=== PATIENT | male | born 1945 | race Caucasian/White ===

== ENCOUNTER 2016-07-09 02:50 | Emergency (ER) | payer OTHER ==
[~2016-07-09] VITALS: Ht 167.6 cm; Wt 77.0 kg
[~2016-07-09 02:50] MED LIST: ALBU17I INH; AZIT250T3 PO; FISH1000 PO; FOSA70TA PO; HYDR12.56 PO; IPRAAER INH; MUCI600T PO; PRAV10 PO; PRED20 PO; TAB-TAB PO; TAMS0.4C67 PO
[2016-07-09 02:55] VITALS: BP 126/59; PULSE 107; RESP 20; TEMP 98.2; O2SAT 96
[2016-07-09 03:00] VITALS: O2SAT 96
[2016-07-09] MEDS ORDERED: GUAI400T8 PO (03:12)
[2016-07-09] MEDS ORDERED: SYMB80AE INH (03:12)
[2016-07-09] MEDS ORDERED: PRAV20TA2 PO (03:12)
[2016-07-09] MEDS ORDERED: TAMS0.4C4 PO (03:12)
[2016-07-09] MEDS ORDERED: MULTTAB67 PO (03:12)
[2016-07-09] MEDS ORDERED: IPRAAER INH (03:12)
[2016-07-09] MEDS ORDERED: FISH1000 (03:12)
[2016-07-09] MEDS ORDERED: VITA500030 CHEW (03:12)
[2016-07-09] MEDS ORDERED: ALEN1TAB48 PO (03:12)
[2016-07-09] MEDS ORDERED: LISI10TA3 PO (03:12)
[2016-07-09] MEDS: RESP: ALBUTEROL 2.5 MG/IPRATROPIUM 0.5 MG NEB (SCH) INH (03:19)
[2016-07-09 03:36] LABS: BASOPHIL % 0.3 % (0.0-2.0); EOSINOPHIL % 0.2 % (0.0-4.0); HEMATOCRIT 38.1 % (39.0-51.0); HEMO FLAGS DIFF FINAL; LYMPH % 13.5 % (9.0-44.0); LYMPHOCYTE # 1.5 TH/MM3 (1.0-4.8); MEAN CELL VOLUME 97.8 FL (80.0-100.0); MEAN CORPUSCULAR HEMOGLOBIN 32.9 PG (27.0-34.0); MEAN CORPUSCULAR HGB CONC 33.6 % (32.0-36.0); PLATELET COUNT 147 TH/MM3 (150-450); RED BLOOD COUNT 3.89 MIL/MM3 (4.50-5.90); RED CELL DISTRIBUTION WIDTH 12.9 % (11.6-17.2); WHITE BLOOD COUNT 11.4 TH/MM3 (4.0-11.0)
--- NOTE | 2016-07-09 03:41 | RADRPT ---
EXAM DATE/TIME: 07/09/2016 03:06 [facility] COMPARISON: CHEST SINGLE AP, April 20, 2016, 14:30. INDICATIONS : Shortness of breath. MEDICAL HISTORY : Chronic obstructive pulmonary disease. SURGICAL HISTORY : None. ENCOUNTER: Initial ACUITY: 1 day PAIN SCORE: 0/10 LOCATION: Bilateral chest FINDINGS: A single view of the chest demonstrates the lungs to be symmetrically aerated without evidence of mas s, infiltrate or effusion. The cardiomediastinal contours are unremarkable. Osseous structures are intact. CONCLUSION: The lungs are clear. No evidence of pneumothorax. Hank Rivera MD on July 09, 2016 at 3:40 Board Certified Radiologist. This report was verified electronically.
[2016-07-09 03:51] LABS: ALT (GPT) 20 U/L (12-78); ANION GAP 6 MEQ/L (5-15); AST (GOT) 16 U/L (15-37); BICARBONATE 25.7 MEQ/L (21.0-32.0); BLOOD UREA NITROGEN 16 MG/DL (7-18); CHLORIDE 112 MEQ/L (98-107); GLOMERULAR FILTRATION RATE 80 ML/MIN (>89); POTASSIUM 3.3 MEQ/L (3.5-5.1); SODIUM (NA) 144 MEQ/L (136-145)
[2016-07-09 03:55] LABS: ALKALINE PHOSPHATASE 40 U/L (45-117); TOTAL BILIRUBIN ADULT 0.3 MG/DL (0.2-1.0)
--- NOTE | 2016-07-09 04:43 | PD ---
HPI Chief Complaint: Respiratory Distress Time Seen by Provider: 02:59 Travel History International Travel<30 days: No Contact w/Intl Traveler<30days: No Traveled to known affect area: No History of Present Illness HPI This is a 71-year-old male who has a history of COPD who is on 2 L of oxygen in the evenings at home who presents to the emergency department with increasing shortness of breath that started at 9 PM, constant, moderate severity, worse with exertion improved with rest. He denies any change in his sputum production. He denies any fevers or chills. He follows with Dr. gaitan. He says this feels similar to his COPD exacerbations he's had in the past. He denies any chest pain. PFSH Past Medical History Asthma: No Heart Rhythm Problems: No Cancer: No Cardiovascular Problems: Yes High Cholesterol: Yes Chest Pain: No Congestive Heart Failure: No COPD: Yes Diminished Hearing: Yes (B HEARING AIDES) Endocrine: No Genitourinary: Yes (incontinence) Hypertension: Yes Immune Disorder: No Musculoskeletal: No Neurologic: No Psychiatric: No Reproductive: No Respiratory: Yes Sleep Apnea: No Past Surgical History Abdominal Surgery: No Cardiac Surgery: No Ear Surgery: No Endocrine Surgery: No Eye Surgery: Yes (CATARACT) Genitourinary Surgery: No Gynecologic Surgery: No Oral Surgery: No Thoracic Surgery: Yes (pneumothorax) Other Surgery: Yes Social History Alcohol Use: No Tobacco Use: No (quit 3 yrs ago) Substance Use: No Allergies-Medications (Allergen,Severity, Reaction): Coded Allergies: No Known Allergies (Verified , 07/09/16) Reported Meds & Prescriptions Reported Meds & Active Scripts Active Reported Alendronate (Alendronate Sodium) 70 Mg Tab 70 Mg PO Q7D Combivent Respimat Inh (Ipratropium-Albuterol Inh) 20-100 Group Home/Act Aero 1 Puff INH QID Symbicort Inh (Budesonide/Formoterol Fumarate) 80-4.5 Mcg/Act Aero 2 Puff INH Q12HR Combivent Respimat Inh (Ipratropium-Albuterol Inh) 20-100 Group Home/Act Aero 1 Puff INH QID Tamsulosin (Tamsulosin HCl) 0.4 Mg Cap 0.4 Mg PO HS Pravastatin 20 Mg Tab 10 Mg PO DAILY Lisinopril 10 Mg Tab 10 Mg PO DAILY Guaifenesin 400 Mg Tab PO BID Fish Oil ([place]-3 Fatty Acids) 1,000 Mg Cap Vitamin D3 (Cholecalciferol) 5,000 Unit Chew 5,000 Units CHEW DAILY Multiple Vitamin 1 Tab 1 Tab PO DAILY Review of Systems Except as stated in HPI: all other systems reviewed are Neg Physical Exam Narrative GENERAL:Well appearing, no acute distress SKIN: Warm and dry. HEAD: Atraumatic. Normocephalic. EYES: Pupils equal and round. No injection or drainage. ENT: Moist mucous membranes NECK: Trachea midline. CARDIOVASCULAR: Regular rate and rhythm. No murmur appreciated. RESPIRATORY: Accessory muscle use, speaking 3-4 sentences, tachypneic, poor air movement bilaterally. GASTROINTESTINAL: Abdomen soft, non-tender, nondistended. MUSCULOSKELETAL: No obvious deformities. NEUROLOGICAL: Awake and alert. No obvious cranial nerve deficits. Moving all extremities. PSYCHIATRIC: Appropriate mood and affect; insight and judgment normal. Data Data Last Documented VS Vital Signs Date Time Temp Pulse Resp B/P Pulse Ox O2 Delivery O2 Flow Rate FiO2 07/09/16 03:00 96 Nasal Cannula 3.00 07/09/16 02:55 98.2 107 20 126/59 Orders Complete Blood Count With Diff (07/09/16 03:00) D-Dimer (07/09/16 03:00) ^ Insert Iv (07/09/16 03:00) Chest, Single Ap (07/09/16 ) Albuterol-Ipratropium Neb (Duoneb Neb) (07/09/16 03:00) Electrocardiogram (07/09/16 ) Troponin I (07/09/16 03:01) Comprehensive Metabolic Panel (07/09/16 03:01) Ct Pulmonary Angiogram (07/09/16 ) Iohexol 350 Inj (Omnipaque 350 Inj) (07/09/16 04:44) Labs Laboratory Tests Test 07/09/16 03:15 White Blood Count 11.4 TH/MM3 Red Blood Count 3.89 MIL/MM3 Hemoglobin 12.8 GM/DL Hematocrit 38.1 % Mean Corpuscular Volume 97.8 FL Mean Corpuscular Hemoglobin 32.9 PG Mean Corpuscular Hemoglobin 33.6 % Concent Red Cell Distribution Width 12.9 % Platelet Count 147 TH/MM3 Mean Platelet Volume 7.6 FL Neutrophils (%) (Auto) 79.0 % Lymphocytes (%) (Auto) 13.5 % Monocytes (%) (Auto) 7.0 % Eosinophils (%) (Auto) 0.2 % Basophils (%) (Auto) 0.3 % Neutrophils # (Auto) 9.0 TH/MM3 Lymphocytes # (Auto) 1.5 TH/MM3 Monocytes # (Auto) 0.8 TH/MM3 Eosinophils # (Auto) 0.0 TH/MM3 Basophils # (Auto) 0.0 TH/MM3 CBC Comment DIFF FINAL Differential Comment D-Dimer Quantitative (PE/DVT) 1.17 MG/L FEU Sodium Level 144 MEQ/L Potassium Level 3.3 MEQ/L Chloride Level 112 MEQ/L Carbon Dioxide Level 25.7 MEQ/L Anion Gap 6 MEQ/L Blood Urea Nitrogen 16 MG/DL Creatinine 0.94 MG/DL Estimat Glomerular Filtration 80 ML/MIN Rate Random Glucose 137 MG/DL Calcium Level 7.6 MG/DL Total Bilirubin 0.3 MG/DL Aspartate Amino Transf 16 U/L (AST/SGOT) Alanine Aminotransferase 20 U/L (ALT/SGPT) Alkaline Phosphatase 40 U/L Troponin I LESS THAN 0.02 NG/ML Total Protein 5.9 GM/DL Albumin 3.3 GM/DL [facility] Medical Decision Making Medical Screen Exam Complete: Yes Emergency Medical Condition: Yes Interpretation(s) Afebrile, tachycardic, normotensive Mild leukocytosis Mild anemia Mild hypokalemia Troponin is normal CT pulmonary angiogram: 4 x 1.5 cm opacity in the right costophrenic angle nonspecific in appearance Differential Diagnosis COPD exacerbation, pneumonia, pulmonary embolism, pneumothorax Narrative Course This is a 71-year-old male who has a history of COPD who is intermittently on 2 L of oxygen at home who presents to the emergency department with increasing shortness of breath this evening. He was placed on a monitor and an IV was established. He was given serial bronchodilators. He received IV steroids with EMS. Labs were obtained which were reassuring. Chest x-ray demonstrated no pneumothorax. D-dimer was elevated and the patient had more dyspnea than was reflected on his physical exam so a CT pulmonary angiogram was obtained to rule out pulmonary embolism. He did have an incidental finding of small consolidation versus mass. I discussed this with him and he will follow-up with Dr. Gaitan. Patient feels much better and is eager to go home. He'll be discharged on antibiotics and steroids. Diagnosis Primary Impression: COPD exacerbation Patient Instructions: General Instructions Additional Instructions: If you develop severe shortness of breath, chest pain, or difficulty breathing return to the emergency department. Use albuterol every 4 hours for the next 2 days. Then use as needed for wheezing. Complete your course of steroids. Complete your course of antibiotics. Follow up with your primary care physician in 2-3 days if your symptoms have not improved. You have a small 4 x 1 cm area on the right costophrenic angle on CT scan which may be a pneumonia or a mass. You should have a CT scan repeated in one month. Med/Other Pt SpecificInfo: Prescription(s) given Scripts Levofloxacin (Levaquin)500 Mg [id number] Mg PO DAILY 7 Days Ref 0 Prov:Marii Oliver MD 07/09/16 Prednisone 20 Mg Tab40 Mg PO DAILY 4 Days Prov:Marii Oliver MD 07/09/16 Disposition: 01 DISCHARGE HOME Condition: Stable Marii Oliver MD Jul 09, 2016 04:42
[2016-07-09] MEDS ORDERED: IOHEXOL 350 MG/ML 10 ML VIAL (for RAD DIAG) IV ONE (04:44)
--- NOTE | 2016-07-09 04:57 | RADRPT ---
EXAM DATE/TIME: 07/09/2016 04:24 [facility] COMPARISON: CHEST SINGLE AP, April 20, 2016, 14:30. CHEST SINGLE AP, July 09, 2016, 3:06. INDICATIONS : Shortness of breath. IV CONTRAST: 75 cc Omnipaque 350 (iohexol) IV RADIATION DOSE: 22.64 CTDIvol (mGy) MEDICAL HISTORY : Hypertension. Chronic obstructive pulmonary disease. Emphysema. SURGICAL HISTORY : None. ENCOUNTER: Initial ACUITY: 1 day PAIN SCALE: 0/10 LOCATION: chest TECHNIQUE: Volumetric scanning of the chest was performed using a pulmonary embolism protocol MIP images were re constructed. Using automated exposure control and adjustment of the mA and/or kV according to patien t size, radiation dose was kept as low as reasonably achievable to obtain optimal diagnostic quality images. FINDINGS: PULMONARY ARTERIES: No filling defects are seen in the pulmonary arteries through the segmental level. LUNGS: Moderate severity upper lobe emphysema. In the lateral right costophrenic angle, there is an irregul ar margin opacity adjacent to the pleura which measures 3.9 x 1.5 cm. This opacity is devoid of air bronchograms. Cannot differentiate between tumor and a consolidative infiltrate. PLEURAE: There is no pleural thickening or pleural effusion. MEDIASTINUM: There is good visualization of the great vessels of the middle mediastinum. No evidence of mediastin al or hilar adenopathy/mass. MUSCULOSKELETAL: Within normal limits for patient age. MISCELLANEOUS: The visualized upper abdominal organs demonstrate no acute abnormality. CONCLUSION: 1. The study is negative for pulmonary embolism. 2. 3.9 x 1.5 cm opacity in the lateral right costophrenic angle is nonspecific in appearance. This c ould represent either tumor or consolidative infiltrate. Recommend followup exam in one month to osvaldo dietrich for resolution or persistence. Hank Rivera MD on July 09, 2016 at 4:51 Board Certified Radiologist. This report was verified electronically.
[2016-07-09] MEDS ORDERED: LEVA500T PO (05:17)
[2016-07-09] MEDS ORDERED: PRED20 PO (05:17)
--- NOTE | 2016-07-09 17:04 | EKG ---
Date Performed: 07/09/2016 Time Performed: 03:45:00 PTAGE: 71 years EKG: SINUS TACHYCARDIA LOW QRS VOLTAGE IN EXTREMITY LEADS Since previous tracing 04/20/2016, axi s no longer leftward, otherwise no significant change. ABNORMAL RHYTHM ECG PREVIOUS TRACING : 04/20/2016 14.55 DOCTOR: Jono Coker Interpretating Date/Time 07/09/2016 17:03:04
== END 2016-07-09 06:04 | disposition home or self-care (01) ==
LOC: NEPC 02:50
DX: J44.1 Chronic obstructive pulmonary disease with (acute) exacerbation (principal); E78.00 Pure hypercholesterolemia, unspecified; I10 Essential (primary) hypertension; R00.0 Tachycardia, unspecified; I49.8 Other specified cardiac arrhythmias
CPT/HCPCS: 71010; 71275; 80053; 84484; 85025; 85379; 93005; 94640; 94664; 99284; Q9967

== ENCOUNTER 2016-11-05 07:32 | Emergency (ER) | payer OTHER ==
[~2016-11-05] VITALS: Ht 162.6 cm; Wt 73.7 kg
[~2016-11-05 07:32] MED LIST changes: -ALBU17I INH; +ALEN1TAB48 PO; -AZIT250T3 PO; +FISH1000; -FISH1000 PO; -FOSA70TA PO; +GUAI400T8 PO; -HYDR12.56 PO; +LEVA500T PO; +LISI10TA3 PO; -MUCI600T PO; +MULTTAB67 PO; -PRAV10 PO; +PRAV20TA2 PO; +SYMB80AE INH; -TAB-TAB PO; +TAMS0.4C4 PO; -TAMS0.4C67 PO; +VITA500030 CHEW
[2016-11-05 07:45] VITALS: BP 149/55; PULSE 94; RESP 16; TEMP 98.1; O2SAT 98
[2016-11-05 07:48] VITALS: BP 149/55; PULSE 94; RESP 16; TEMP 98.1; O2SAT 98
[2016-11-05 07:53] VITALS: BP 149/55; PULSE 94; RESP 16; TEMP 98.1; O2SAT 98
[2016-11-05] MEDS: RESP: ALBUTEROL 2.5 MG/IPRATROPIUM 0.5 MG NEB (SCH) INH ×2 (07:55→07:56)
[2016-11-05] MEDS ORDERED: SODIUM CHLORIDE 0.9% FLUSH 10 ML FLUSH IVF PRN (08:00)
[2016-11-05] MEDS ORDERED: methylPREDNISolone SOD SUCC 125 MG/2 ML VIAL IVP ONE (08:00)
--- NOTE | 2016-11-05 08:01 | PD ---
HPI . Shortness of breath Chief Complaint: Respiratory Symptoms Time Seen by Provider: 07:46 Travel History International Travel<30 days: No Contact w/Intl Traveler<30days: No Traveled to known affect area: No History of Present Illness HPI This patient presents with the acute onset of increasing shortness of breath. He has a history of COPD and uses oxygen at night. He states that he was in his usual state of health yesterday. He awakened this morning with increased shortness of breath. He states that he used his Combivent and nebulizer and did have some improvement in his symptoms. EMS was called and he was brought to the hospital. He was given a nebulizer in route. He reports that his symptoms continue to improve. He has not been running a fever. He has not had any change in his sputum production. He has not had any chest pain. Patient is unsure as to what incited this episode of increased dyspnea. Symptoms were moderate but are improving. PFSH Past Medical History Asthma: No Heart Rhythm Problems: No Cancer: No Cardiovascular Problems: Yes High Cholesterol: Yes Chest Pain: Yes Congestive Heart Failure: No COPD: Yes Diminished Hearing: Yes (B HEARING AIDES) Endocrine: No GERD: Yes Genitourinary: Yes (incontinence) Hypertension: Yes Immune Disorder: No Musculoskeletal: No Neurologic: No Psychiatric: No Reproductive: No Respiratory: Yes Sleep Apnea: No Tetanus Vaccination: Unknown Past Surgical History Abdominal Surgery: No Cardiac Surgery: No Ear Surgery: No Endocrine Surgery: No Eye Surgery: Yes (CATARACT) Genitourinary Surgery: No Gynecologic Surgery: No Oral Surgery: No Thoracic Surgery: Yes (pneumothorax) Other Surgery: Yes Social History Alcohol Use: No Tobacco Use: No (quit 3 yrs ago) Substance Use: No Allergies-Medications (Allergen,Severity, Reaction): Coded Allergies: No Known Allergies (Verified , 11/05/16) Reported Meds & Prescriptions Reported Meds & Active Scripts Active Prednisone 20 Mg Tab 40 Mg PO DAILY 4 Days Reported Albuterol Neb (Albuterol Sulfate) 2.5 Mg/3 Ml Neb 2.5 Mg NEB TID NEB PRN Omeprazole 20 Mg Tab 20 Mg PO DAILY Vitamin D3 (Cholecalciferol) 5,000 Unit Cap 5,000 Units PO DAILY Alendronate (Alendronate Sodium) 70 Mg Tab 70 Mg PO Q7D Combivent Respimat Inh (Ipratropium-Albuterol Inh) 20-100 Senior Living/Act Aero 1 Puff INH QID Symbicort Inh (Budesonide/Formoterol Fumarate) 80-4.5 Mcg/Act Aero 2 Puff INH Q12HR Combivent Respimat Inh (Ipratropium-Albuterol Inh) 20-100 Senior Living/Act Aero 1 Puff INH QID Tamsulosin (Tamsulosin HCl) 0.4 Mg Cap 2 Cap PO HS Pravastatin 20 Mg Tab 10 Mg PO DAILY Lisinopril 10 Mg Tab 10 Mg PO DAILY Guaifenesin 400 Mg Tab 2 Cap PO BID Fish Oil ([place]-3 Fatty Acids) 1,000 Mg Cap Multiple Vitamin 1 Tab 1 Tab PO DAILY Review of Systems Except as stated in HPI: all other systems reviewed are Neg General / Constitutional: No: Fever, Chills Cardiovascular: No: Chest Pain or Discomfort Respiratory: Positive: Shortness of Breath Gastrointestinal: No: Nausea, Vomiting, Diarrhea Physical Exam Narrative GENERAL: Patient is currently receiving a nebulizer treatment. He is able to speak in complete sentences without difficulty. SKIN: Warm and dry. HEAD: Atraumatic. Normocephalic. EYES: Pupils equal and round. Extraocular movements are intact. ENT: No nasal bleeding or discharge. Mucous membranes pink and moist. NECK: Trachea midline. Neck is supple. CARDIOVASCULAR: Regular rate and rhythm. Heart sounds are normal. RESPIRATORY: No accessory muscle use. Diminished breath sounds throughout. GASTROINTESTINAL: Abdomen soft, non-tender, nondistended. MUSCULOSKELETAL: No obvious deformities. No edema. NEUROLOGICAL: Awake and alert. No obvious cranial nerve deficits. Motor grossly within normal limits. Normal speech. PSYCHIATRIC: Appropriate mood and affect; insight and judgment normal. Data Data Last Documented VS Vital Signs Date Time Temp Pulse Resp B/P Pulse Ox O2 Delivery O2 Flow Rate FiO2 11/05/16 07:53 98.1 94 16 149/55 98 Nasal Cannula 2 Orders Complete Blood Count With Diff (11/05/16 07:47) Basic Metabolic Panel (Bmp) (11/05/16 07:47) Iv Access Insert/Monitor (11/05/16 07:47) Ecg Monitoring (11/05/16 07:47) Oximetry (11/05/16 07:47) Oxygen Administration (11/05/16 07:47) Chest, Single Ap (11/05/16 07:47) Sodium Chloride 0.9% Flush (Ns Flush) (11/05/16 08:00) Methylprednisolone So Succ Inj (Solumedr (11/05/16 08:00) Albuterol-Ipratropium Neb (Duoneb Neb) (11/05/16 08:00) Ondansetron Inj (Zofran Inj) (11/05/16 08:45) Labs Laboratory Tests Test 11/05/16 08:00 White Blood Count 6.2 TH/MM3 Red Blood Count 4.02 MIL/MM3 Hemoglobin 13.2 GM/DL Hematocrit 39.2 % Mean Corpuscular Volume 97.5 FL Mean Corpuscular Hemoglobin 32.8 PG Mean Corpuscular Hemoglobin 33.7 % Concent Red Cell Distribution Width 13.2 % Platelet Count 151 TH/MM3 Mean Platelet Volume 7.7 FL Neutrophils (%) (Auto) 55.6 % Lymphocytes (%) (Auto) 35.3 % Monocytes (%) (Auto) 7.4 % Eosinophils (%) (Auto) 1.2 % Basophils (%) (Auto) 0.5 % Neutrophils # (Auto) 3.5 TH/MM3 Lymphocytes # (Auto) 2.2 TH/MM3 Monocytes # (Auto) 0.5 TH/MM3 Eosinophils # (Auto) 0.1 TH/MM3 Basophils # (Auto) 0.0 TH/MM3 CBC Comment DIFF FINAL Differential Comment Sodium Level 143 MEQ/L Potassium Level 3.9 MEQ/L Chloride Level 109 MEQ/L Carbon Dioxide Level 28.8 MEQ/L Anion Gap 5 MEQ/L Blood Urea Nitrogen 17 MG/DL Creatinine 0.98 MG/DL Estimat Glomerular Filtration 76 ML/MIN Rate Random Glucose 136 MG/DL Calcium Level 8.7 MG/DL [facility] Medical Decision Making Medical Screen Exam Complete: Yes Emergency Medical Condition: Yes Medical Record Reviewed: Yes (patient was last seen in June with a COPD exacerbation. He was successfully treated with steroids and DuoNeb nebs. He was subsequently discharged home.) Differential Diagnosis Differential diagnosis of dyspnea includes but is not limited to congestive heart failure, pneumonia, wheezing, pneumothorax, pulmonary embolism Narrative Course Patient presents with increased dyspnea. He has a history of COPD. He feels that this is probably a COPD exacerbation. He is being treated with steroids and stacked nebs. Chest x-ray will be obtained rule out pneumothorax or pneumonia. Last Impressions Chest X-Ray 11/05/16 0731 Signed Impressions: Service Date/Time: Saturday, November 05, 2016 07:53 - CONCLUSION: Normal examination. Anirudh Goldberg MD The chest x-ray was independently viewed by me. CBC & BMP Diagram 11/05/16 08:00 Patient reports that his breathing is improved. His sats are now 98-99% on 2 L. He is now complaining with some nausea. I will give him some Zofran. Diagnosis Primary Impression: COPD exacerbation Additional Impression: Nausea Patient Instructions: COPD (Chronic Obstructive Pulmonary Disease) (DC), General Instructions Med/Other Pt SpecificInfo: Prescription(s) given Scripts Prednisone (21) 10 mg tab Dose Pack 10 Mg Pack10 Mg PO DIRECTED #1 DSPK Ref 0 Prov:Fatimah Yi MD 11/05/16 Disposition: 01 DISCHARGE HOME Condition: Stable Fatimah Yi MD Nov 05, 2016 08:01
[2016-11-05] MEDS ORDERED: ALBU0.08 NEB (08:06)
[2016-11-05] MEDS ORDERED: CHOL5000 PO (08:06)
[2016-11-05] MEDS ORDERED: OMEP20TA PO (08:06)
[2016-11-05 08:25] LABS: BICARBONATE 28.8 MEQ/L (21.0-32.0); POTASSIUM 3.9 MEQ/L (3.5-5.1)
--- NOTE | 2016-11-05 08:29 | RADRPT ---
EXAM DATE/TIME: 11/05/2016 07:53 [facility] COMPARISON: CHEST SINGLE AP, July 09, 2016, 3:06. INDICATIONS : Short of Breath MEDICAL HISTORY : Emphysema. Chronic obstructive pulmonary disease. Hypertension. SURGICAL HISTORY : None. ENCOUNTER: Initial ACUITY: 1 day PAIN SCORE: 0/10 LOCATION: Bilateral chest FINDINGS: A single view of the chest demonstrates the lungs to be symmetrically aerated without evidence of mas s, infiltrate or effusion. The cardiomediastinal contours are unremarkable. Osseous structures are intact. CONCLUSION: Normal examination. Anirudh Goldberg MD on November 05, 2016 at 8:27 Board Certified Radiologist. This report was verified electronically.
[2016-11-05 08:34] LABS: AUTOMATED NEUTROPHIL # 3.5 TH/MM3 (1.8-7.7); BASOPHIL % 0.5 % (0.0-2.0); EOSINOPHIL # 0.1 TH/MM3 (0-0.4); EOSINOPHIL % 1.2 % (0.0-4.0); HEMATOCRIT 39.2 % (39.0-51.0); HEMO FLAGS DIFF FINAL; LYMPH % 35.3 % (9.0-44.0); LYMPHOCYTE # 2.2 TH/MM3 (1.0-4.8); MEAN CELL VOLUME 97.5 FL (80.0-100.0); MEAN CORPUSCULAR HEMOGLOBIN 32.8 PG (27.0-34.0); MEAN CORPUSCULAR HGB CONC 33.7 % (32.0-36.0); MONO % 7.4 % (0.0-8.0); NEUT % 55.6 % (16.0-70.0); PLATELET COUNT 151 TH/MM3 (150-450); RED BLOOD COUNT 4.02 MIL/MM3 (4.50-5.90); RED CELL DISTRIBUTION WIDTH 13.2 % (11.6-17.2); WHITE BLOOD COUNT 6.2 TH/MM3 (4.0-11.0)
[2016-11-05] MEDS ORDERED: ONDANSETRON HCL 4 MG/2 ML VIAL IV PUSH ONE (08:45)
[2016-11-05] MEDS ORDERED: PRED10PA PO (09:04)
[2016-11-05 09:53] VITALS: BP 135/63
== END 2016-11-05 09:54 | disposition home or self-care (01) ==
LOC: NEPC 07:32
DX: J44.1 Chronic obstructive pulmonary disease with (acute) exacerbation (principal); R11.0 Nausea; I10 Essential (primary) hypertension; K21.9 Gastro-esophageal reflux disease without esophagitis; E78.00 Pure hypercholesterolemia, unspecified; Z87.891 Personal history of nicotine dependence
CPT/HCPCS: 71010; 80048; 85025; 94640; 94664; 96374; 99284; J2405

== ENCOUNTER 2016-12-23 19:54 | Emergency (ER) | payer OTHER ==
[~2016-12-23] VITALS: Ht 160 cm; Wt 75.0 kg
[~2016-12-23 19:54] MED LIST changes: +ALBU0.08 NEB; +CHOL5000 PO; -LEVA500T PO; +OMEP20TA PO; +PRED10PA PO; -VITA500030 CHEW
[2016-12-23 20:00] VITALS: BP 150/74; PULSE 102; RESP 20; TEMP 98.5; O2SAT 96
[2016-12-23 21:20] VITALS: BP 117/68; PULSE 90; RESP 20; O2SAT 97
--- NOTE | 2016-12-23 21:27 | PD ---
HPI Chief Complaint: Respiratory Distress Time Seen by Provider: 21:12 Travel History International Travel<30 days: No Contact w/Intl Traveler<30days: No Traveled to known affect area: No History of Present Illness HPI 71-year-old male complaining of shortness of breath. Patient has history of COPD. Patient states that he has persistent productive cough for the past few days. Patient denies any fever chills. Patient denies any chest pain. Patient has been using nebulizer treatment at home. Patient Is Taking Prednisone 20 Mg Twice a Day. Patient Denies Any Abdominal Pain, Nausea Vomiting Diarrhea. PFSH Past Medical History Asthma: No Heart Rhythm Problems: No Cancer: No Cardiovascular Problems: Yes High Cholesterol: Yes Chest Pain: Yes Congestive Heart Failure: No COPD: Yes Diminished Hearing: Yes (B HEARING AIDES) Endocrine: No GERD: Yes Genitourinary: Yes (incontinence) Hypertension: Yes Immune Disorder: No Musculoskeletal: No Neurologic: No Psychiatric: No Reproductive: No Respiratory: Yes Sleep Apnea: No Tetanus Vaccination: < 5 Years Influenza Vaccination: Yes Past Surgical History Abdominal Surgery: No Cardiac Surgery: No Ear Surgery: No Endocrine Surgery: No Eye Surgery: Yes (CATARACT) Genitourinary Surgery: No Gynecologic Surgery: No Oral Surgery: No Thoracic Surgery: Yes (pneumothorax) Other Surgery: Yes Social History Alcohol Use: Yes (wine weekly) Tobacco Use: No (quit 3 yrs ago) Substance Use: No Allergies-Medications (Allergen,Severity, Reaction): Coded Allergies: No Known Allergies (Verified , 11/05/16) Reported Meds & Prescriptions Reported Meds & Active Scripts Active Prednisone (21) 10 mg tab Dose Pack (Prednisone) 10 Mg Pack 10 Mg PO DIRECTED Prednisone 20 Mg Tab 40 Mg PO DAILY 4 Days Reported Albuterol Neb (Albuterol Sulfate) 2.5 Mg/3 Ml Neb 2.5 Mg NEB TID NEB PRN Omeprazole 20 Mg Tab 20 Mg PO DAILY Vitamin D3 (Cholecalciferol) 5,000 Unit Cap 5,000 Units PO DAILY Alendronate (Alendronate Sodium) 70 Mg Tab 70 Mg PO Q7D Combivent Respimat Inh (Ipratropium-Albuterol Inh) 20-100 Halfway/Act Aero 1 Puff INH QID Symbicort Inh (Budesonide/Formoterol Fumarate) 80-4.5 Mcg/Act Aero 2 Puff INH Q12HR Combivent Respimat Inh (Ipratropium-Albuterol Inh) 20-100 Halfway/Act Aero 1 Puff INH QID Tamsulosin (Tamsulosin HCl) 0.4 Mg Cap 2 Cap PO HS Pravastatin 20 Mg Tab 10 Mg PO DAILY Lisinopril 10 Mg Tab 10 Mg PO DAILY Guaifenesin 400 Mg Tab 2 Cap PO BID Fish Oil ([place]-3 Fatty Acids) 1,000 Mg Cap Multiple Vitamin 1 Tab 1 Tab PO DAILY Review of Systems General / Constitutional: No: Fever Eyes: No: Visual changes HENT: No: Headaches Cardiovascular: No: Chest Pain or Discomfort Respiratory: Positive: Shortness of Breath Gastrointestinal: No: Abdominal Pain Genitourinary: No: Dysuria Musculoskeletal: No: Pain Skin: No Rash Neurologic: No: Weakness Psychiatric: No: Depression Endocrine: No: Polydipsia Hematologic/Lymphatic: No: Easy Bruising Physical Exam Narrative GENERAL: Well-nourished, well-developed patient. SKIN: Focused skin assessment warm/dry. HEAD: Normocephalic. EYES: No scleral icterus. No injection or drainage. NECK: Supple, trachea midline. No JVD or lymphadenopathy. CARDIOVASCULAR: Regular rate and rhythm without murmurs, gallops, or rubs. RESPIRATORY: Patient has decreased breath sounds bilaterally. Mild expiratory wheezes bilaterally. Few rhonchi at the bases. GASTROINTESTINAL: Abdomen soft, non-tender, nondistended. MUSCULOSKELETAL: No cyanosis, or edema. BACK: Nontender without obvious deformity. No CVA tenderness. Neurologic exam normal. Data Data Last Documented VS Vital Signs Date Time Temp Pulse Resp B/P (MAP) Pulse Ox O2 Delivery O2 Flow Rate FiO2 12/23/16 20:00 98.5 102 20 150/74 (99) 96 Nasal Cannula 1.00 Orders Orders Complete Blood Count With Diff (12/23/16 21:22) Basic Metabolic Panel (Bmp) (12/23/16 21:22) B-Type Natriuretic Peptide (12/23/16 21:22) Iv Access Insert/Monitor (12/23/16 21:22) Electrocardiogram (12/23/16 21:22) Ecg Monitoring (12/23/16 21:22) Oximetry (12/23/16 21:22) Chest, Single Ap (12/23/16 21:22) Sodium Chloride 0.9% Flush (Ns Flush) (12/23/16 21:30) Methylprednisolone So Succ Inj (Solumedr (12/23/16 21:30) Albuterol-Ipratropium Neb (Duoneb Neb) (12/23/16 21:30) Labs Laboratory Tests Test 12/23/16 21:35 White Blood Count 9.2 TH/MM3 Red Blood Count 4.24 MIL/MM3 Hemoglobin 13.9 GM/DL Hematocrit 42.0 % Mean Corpuscular Volume 98.9 FL Mean Corpuscular Hemoglobin 32.8 PG Mean Corpuscular Hemoglobin Concent 33.2 % Red Cell Distribution Width 13.5 % Platelet Count 216 TH/MM3 Mean Platelet Volume 7.8 FL Neutrophils (%) (Auto) 73.7 % Lymphocytes (%) (Auto) 18.5 % Monocytes (%) (Auto) 7.2 % Eosinophils (%) (Auto) 0.2 % Basophils (%) (Auto) 0.4 % Neutrophils # (Auto) 6.8 TH/MM3 Lymphocytes # (Auto) 1.7 TH/MM3 Monocytes # (Auto) 0.7 TH/MM3 Eosinophils # (Auto) 0.0 TH/MM3 Basophils # (Auto) 0.0 TH/MM3 CBC Comment DIFF FINAL Differential Comment Blood Urea Nitrogen 14 MG/DL Creatinine 1.22 MG/DL Random Glucose 96 MG/DL Calcium Level 10.1 MG/DL Sodium Level 140 MEQ/L Potassium Level 4.7 MEQ/L Chloride Level 101 MEQ/L Carbon Dioxide Level 30.5 MEQ/L Anion Gap 9 MEQ/L Estimat Glomerular Filtration Rate 59 ML/MIN [facility] Medical Decision Making Medical Screen Exam Complete: Yes Emergency Medical Condition: Yes Interpretation(s) 22:28 PM. Chest x-ray shows no acute cardiopulmonary disease. CBC within normal limit. BMP within normal limit. Differential Diagnosis Differential diagnosis including acute exacerbation COPD, bronchitis, pneumonia , PE, pneumothorax, CA. Narrative Course 71-year-old male with shortness of breath. History of COPD. Albuterol with Atrovent unit dose treatment 2. Solu-Medrol 125 mg IV. Diagnosis Primary Impression: COPD with acute exacerbation Patient Instructions: General Instructions Additional Instructions: Continue with albuterol nebulizer treatment as directed. Z-Genaro and prednisone as directed. Follow-up with personal physician. Return if worse. Med/Other Pt SpecificInfo: Prescription(s) given Scripts Prednisone (Prednisone) 20 Mg Tab 20 MG PO BID, #10 TAB 0 Refills Prov: Tj Nuñez MD 12/23/16 Azithromycin (Zithromax Z-Genaro) 250 Mg Dspk 250 MG PO DIRECTED for Infection, #1 DSPK 0 Refills 500 MG (2 tabs) day 1, then 1 tab days 2-5. Prov: Tj Nuñez MD 12/23/16 Disposition: 01 DISCHARGE HOME Condition: Stable Tj Nuñez MD Dec 23, 2016 21:27
[2016-12-23] MEDS ORDERED: SODIUM CHLORIDE 0.9% FLUSH 10 ML FLUSH IVF PRN (21:30)
[2016-12-23] MEDS ORDERED: methylPREDNISolone SOD SUCC 125 MG/2 ML VIAL IVP ONE (21:30)
[2016-12-23] MEDS: RESP: ALBUTEROL 2.5 MG/IPRATROPIUM 0.5 MG NEB (SCH) INH (21:41)
--- NOTE | 2016-12-23 21:55 | RADRPT ---
EXAM DATE/TIME: 12/23/2016 21:37 [facility] COMPARISON: CHEST SINGLE AP, November 05, 2016, 7:53. INDICATIONS : Short of breath. MEDICAL HISTORY : Chronic obstructive pulmonary disease. SURGICAL HISTORY : None. ENCOUNTER: Initial ACUITY: 4 - 6 days PAIN SCORE: 0/10 LOCATION: Bilateral chest FINDINGS: A single view of the chest demonstrates the lungs to be symmetrically aerated without evidence of mas s, infiltrate or effusion. The cardiomediastinal contours are unremarkable. Osseous structures are intact. CONCLUSION: No evidence of acute cardiopulmonary disease. Shad Grissom MD on December 23, 2016 at 21:53 Board Certified Radiologist. This report was verified electronically.
[2016-12-23 22:07] LABS: AUTOMATED NEUTROPHIL # 6.8 TH/MM3 (1.8-7.7); BASOPHIL % 0.4 % (0.0-2.0); EOSINOPHIL % 0.2 % (0.0-4.0); HEMO FLAGS DIFF FINAL; LYMPH % 18.5 % (9.0-44.0); LYMPHOCYTE # 1.7 TH/MM3 (1.0-4.8); MEAN CELL VOLUME 98.9 FL (80.0-100.0); MEAN CORPUSCULAR HEMOGLOBIN 32.8 PG (27.0-34.0); MEAN CORPUSCULAR HGB CONC 33.2 % (32.0-36.0); MONO % 7.2 % (0.0-8.0); NEUT % 73.7 % (16.0-70.0); PLATELET COUNT 216 TH/MM3 (150-450); RED BLOOD COUNT 4.24 MIL/MM3 (4.50-5.90); RED CELL DISTRIBUTION WIDTH 13.5 % (11.6-17.2); WHITE BLOOD COUNT 9.2 TH/MM3 (4.0-11.0)
[2016-12-23 22:21] LABS: BICARBONATE 30.5 MEQ/L (21.0-32.0); POTASSIUM 4.7 MEQ/L (3.5-5.1)
[2016-12-23] MEDS ORDERED: AZITHROMYCIN 250 MG TAB PO ONE (22:30)
[2016-12-23] MEDS ORDERED: ZITHTAB PO (22:32)
[2016-12-23] MEDS ORDERED: PRED20 PO (22:32)
--- NOTE | 2016-12-24 18:22 | EKG ---
Date Performed: 12/23/2016 Time Performed: 22:36:09 PTAGE: 71 years EKG: Sinus rhythm NORMAL ECG NO PREVIOUS TRACING DOCTOR: Milady Heaton Interpretating Date/Time 12/24/2016 18:21:34
== END 2016-12-23 22:56 | disposition home or self-care (01) ==
LOC: NEPC 19:54
DX: J44.1 Chronic obstructive pulmonary disease with (acute) exacerbation (principal); E78.00 Pure hypercholesterolemia, unspecified; K21.9 Gastro-esophageal reflux disease without esophagitis; I10 Essential (primary) hypertension; Z79.51 Long term (current) use of inhaled steroids; Z79.899 Other long term (current) drug therapy
CPT/HCPCS: 71010; 80048; 83880; 85025; 93005; 94640; 94664; 96374; 99284; J2930

== ENCOUNTER 2017-05-26 21:59 | Observation (INO) | payer OTHER ==
[~2017-05-26] VITALS: Ht 167.6 cm; Wt 70.0 kg
[~2017-05-26 21:59] MED LIST changes: +GUAI400T32 PO; -GUAI400T8 PO; -OMEP20TA PO; +OMEP20TA93 PO; +ZITHTAB PO
[2017-05-26] MEDS: RESP: ALBUTEROL 2.5 MG/IPRATROPIUM 0.5 MG NEB (SCH) INH (22:13)
[2017-05-26] MEDS ORDERED: methylPREDNISolone SOD SUCC 125 MG/2 ML VIAL IV PUSH ONE (22:15)
[2017-05-26] MEDS ORDERED: SODIUM CHLOR 0.9% 1000 ML INJ 1,000 ML IV ONE (22:15)
[2017-05-26] MEDS ORDERED: SODIUM CHLORIDE 0.9% FLUSH 10 ML FLUSH IVF PRN (22:15)
[2017-05-26 22:17] VITALS: BP 144/83; PULSE 96; RESP 27; TEMP 98.4; O2SAT 98
[2017-05-26 22:19] VITALS: RESP 27; O2SAT 98
[2017-05-26 22:28] LABS: AUTOMATED NEUTROPHIL # 6.4 TH/MM3 (1.8-7.7); BASOPHIL % 0.2 % (0.0-2.0); HEMATOCRIT 40.3 % (39.0-51.0); HEMOGLOBIN 13.7 GM/DL (13.0-17.0); LYMPH % 22.2 % (9.0-44.0); MEAN CELL VOLUME 96.6 FL (80.0-100.0); MEAN CORPUSCULAR HEMOGLOBIN 32.9 PG (27.0-34.0); MEAN PLATELET VOLUME 7.1 FL (7.0-11.0); MONO % 6.4 % (0.0-8.0); MONOCYTE # 0.6 TH/MM3 (0-0.9); NEUT % 71.2 % (16.0-70.0); PLATELET COUNT 171 TH/MM3 (150-450); RED BLOOD COUNT 4.17 MIL/MM3 (4.50-5.90); RED CELL DISTRIBUTION WIDTH 12.8 % (11.6-17.2); WHITE BLOOD COUNT 8.9 TH/MM3 (4.0-11.0)
--- NOTE | 2017-05-26 22:52 | RADRPT ---
EXAM DATE/TIME: 05/26/2017 22:30 [facility] COMPARISON: No previous studies available for comparison. INDICATIONS : Shortness of breath. MEDICAL HISTORY : Chronic obstructive pulmonary disease. SURGICAL HISTORY : None. ENCOUNTER: Initial ACUITY: 3 days PAIN SCORE: 0/10 LOCATION: Bilateral chest FINDINGS: A single view of the chest demonstrates the lungs to be symmetrically aerated without evidence of mas s, infiltrate or effusion. The cardiomediastinal contours are unremarkable. Osseous structures are intact. CONCLUSION: No acute disease. Aaron Simpson MD on May 26, 2017 at 22:46 Board Certified Radiologist. This report was verified electronically.
[2017-05-26 23:05] LABS: BICARBONATE 27.5 MEQ/L (21.0-32.0); CALCIUM 9.2 MG/DL (8.5-10.1); CREATININE 0.94 MG/DL (0.60-1.30)
[2017-05-27] MEDS ORDERED: ACETAMINOPHEN/HYDROcodone 325 MG/5 MG TAB PO PRN (00:15)
[2017-05-27] MEDS ORDERED: ACETAMINOPHEN 325 MG TAB PO PRN (00:15)
[2017-05-27] MEDS ORDERED: MAGNESIUM HYDROXIDE SUSP 30 ML CUP PO PRN (00:15)
[2017-05-27] MEDS ORDERED: SENNOSIDES 8.6 MG TAB PO PRN (00:15)
[2017-05-27] MEDS ORDERED: LACTULOSE SYRUP 20 GM/30 ML CUP PO PRN (00:15)
[2017-05-27] MEDS ORDERED: MORPHINE SULFATE 2 MG/ML INJ IV PUSH PRN (00:15)
[2017-05-27] MEDS ORDERED: BISACODYL 10 MG SUPP RECTAL PRN (00:15)
[2017-05-27] MEDS ORDERED: SODIUM CHLORIDE 0.9% FLUSH 10 ML FLUSH IV FLUSH PRN (00:15)
[2017-05-27] MEDS ORDERED: ONDANSETRON HCL 4 MG/2 ML VIAL IVP PRN (00:15)
[2017-05-27] MEDS ORDERED: RESP: ALBUTEROL 2.5 MG/IPRATROPIUM 0.5 MG NEB (PRN) NEB (00:15)
[2017-05-27] MEDS ORDERED: PRED20 PO (00:43)
--- NOTE | 2017-05-27 00:43 | PD ---
HPI Chief Complaint: Respiratory Distress Time Seen by Provider: 22:05 Travel History International Travel<30 days: No Contact w/Intl Traveler<30days: No Traveled to known affect area: No History of Present Illness HPI 71-year-old male complains of shortness of breath. He arrives by EMS who administered Solu-Medrol 2 rounds of albuterol. Patient reports improvement with the albuterol. He denies chest pain. He has a history of COPD. He did not use his albuterol inhaler tonight. No fever. Onset gradual. Timing constant. PFSH Past Medical History Asthma: No Heart Rhythm Problems: No Cancer: No Cardiovascular Problems: Yes High Cholesterol: Yes Chest Pain: Yes Congestive Heart Failure: No COPD: Yes Diminished Hearing: Yes (B HEARING AIDES) Endocrine: No GERD: Yes Genitourinary: Yes (incontinence) Hypertension: Yes Immune Disorder: No Musculoskeletal: No Neurologic: No Psychiatric: No Reproductive: No Respiratory: Yes Sleep Apnea: No Influenza Vaccination: Yes Past Surgical History Abdominal Surgery: No Cardiac Surgery: No Ear Surgery: No Endocrine Surgery: No Eye Surgery: Yes (CATARACT) Genitourinary Surgery: No Gynecologic Surgery: No Oral Surgery: No Thoracic Surgery: Yes (pneumothorax) Other Surgery: Yes Social History Alcohol Use: Yes Tobacco Use: No Substance Use: No Allergies-Medications (Allergen,Severity, Reaction): Coded Allergies: No Known Allergies (Verified Allergy, Unknown, 05/27/17) Reported Meds & Prescriptions Reported Meds & Active Scripts Active Prednisone 20 Mg Tab 20 Mg PO BID Zithromax Z-Genaro (Azithromycin) 250 Mg Dspk 250 Mg PO DIRECTED 500 MG (2 tabs) day 1, then 1 tab days 2-5. Prednisone (21) 10 mg tab Dose Pack (Prednisone) 10 Mg Pack 10 Mg PO DIRECTED Prednisone 20 Mg Tab 40 Mg PO DAILY 4 Days Reported Albuterol Neb (Albuterol Sulfate) 2.5 Mg/3 Ml Neb 2.5 Mg NEB TID NEB PRN Omeprazole 20 Mg Tab 20 Mg PO DAILY Vitamin D3 (Cholecalciferol) 5,000 Unit Cap 5,000 Units PO DAILY Alendronate (Alendronate Sodium) 70 Mg Tab 70 Mg PO Q7D Combivent Respimat Inh (Ipratropium-Albuterol Inh) 20-100 Custodial/Act Aero 1 Puff INH QID Symbicort Inh (Budesonide/Formoterol Fumarate) 80-4.5 Mcg/Act Aero 2 Puff INH Q12HR Combivent Respimat Inh (Ipratropium-Albuterol Inh) 20-100 Custodial/Act Aero 1 Puff INH QID Tamsulosin (Tamsulosin HCl) 0.4 Mg Cap 2 Cap PO HS Pravastatin 20 Mg Tab 10 Mg PO DAILY Lisinopril 10 Mg Tab 10 Mg PO DAILY Guaifenesin 400 Mg Tab 2 Cap PO BID Fish Oil ([place]-3 Fatty Acids) 1,000 Mg Cap Multiple Vitamin 1 Tab 1 Tab PO DAILY Review of Systems Except as stated in HPI: all other systems reviewed are Neg General / Constitutional: No: Fever Physical Exam Narrative GENERAL: 71-year-old male moderate distress secondary to dyspnea SKIN: Warm and dry. HEAD: Atraumatic. Normocephalic. EYES: Pupils equal and round. No scleral icterus. No injection or drainage. ENT: No nasal bleeding or discharge. Mucous membranes pink and moist. NECK: Trachea midline. No JVD. CARDIOVASCULAR: Tachycardia. Regular. RESPIRATORY: Tachypnea. Wheezing present bilaterally. GASTROINTESTINAL: Abdomen soft, non-tender, nondistended. Hepatic and splenic margins not palpable. MUSCULOSKELETAL: Extremities without clubbing, cyanosis, or edema. No obvious deformities. NEUROLOGICAL: Awake and alert. No obvious cranial nerve deficits. Motor grossly within normal limits. Five out of 5 muscle strength in the arms and legs. Normal speech. PSYCHIATRIC: Appropriate mood and affect; insight and judgment normal. Data Data Last Documented VS Vital Signs Date Time Temp Pulse Resp B/P (MAP) Pulse Ox O2 Delivery O2 Flow Rate FiO2 05/26/17 22:19 98 Nasal Cannula 4.00 05/26/17 22:19 27 05/26/17 22:17 98.4 96 144/83 (103) Orders Orders Complete Blood Count With Diff (05/26/17 22:05) Basic Metabolic Panel (Bmp) (05/26/17 22:05) Iv Access Insert/Monitor (05/26/17 22:05) Ecg Monitoring (05/26/17 22:05) Oximetry (05/26/17 22:05) Oxygen Administration (05/26/17 22:05) Chest, Single Ap (05/26/17 22:05) Sodium Chloride 0.9% Flush (Ns Flush) (05/26/17 22:15) Methylprednisolone So Succ Inj (Solumedr (05/26/17 22:15) Albuterol-Ipratropium Neb (Duoneb Neb) (05/26/17 22:15) Sodium Chlor 0.9% 1000 Ml Inj (Ns 1000 M (05/26/17 22:15) Admit Order (Ed Use Only) (05/26/17 23:51) Labs Laboratory Tests Test 05/26/17 22:10 White Blood Count 8.9 TH/MM3 Red Blood Count 4.17 MIL/MM3 Hemoglobin 13.7 GM/DL Hematocrit 40.3 % Mean Corpuscular Volume 96.6 FL Mean Corpuscular Hemoglobin 32.9 PG Mean Corpuscular Hemoglobin Concent 34.0 % Red Cell Distribution Width 12.8 % Platelet Count 171 TH/MM3 Mean Platelet Volume 7.1 FL Neutrophils (%) (Auto) 71.2 % Lymphocytes (%) (Auto) 22.2 % Monocytes (%) (Auto) 6.4 % Eosinophils (%) (Auto) 0.0 % Basophils (%) (Auto) 0.2 % Neutrophils # (Auto) 6.4 TH/MM3 Lymphocytes # (Auto) 2.0 TH/MM3 Monocytes # (Auto) 0.6 TH/MM3 Eosinophils # (Auto) 0.0 TH/MM3 Basophils # (Auto) 0.0 TH/MM3 CBC Comment DIFF FINAL Differential Comment Blood Urea Nitrogen 18 MG/DL Creatinine 0.94 MG/DL Random Glucose 124 MG/DL Calcium Level 9.2 MG/DL Sodium Level 138 MEQ/L Potassium Level 4.1 MEQ/L Chloride Level 105 MEQ/L Carbon Dioxide Level 27.5 MEQ/L Anion Gap 6 MEQ/L Estimat Glomerular Filtration Rate 80 ML/MIN [facility] Medical Decision Making Medical Screen Exam Complete: Yes Emergency Medical Condition: Yes Medical Record Reviewed: Yes Differential Diagnosis Pneumonia, COPD, pneumothorax Narrative Course CBC & BMP Diagram 05/26/17 22:10 Calcium Level 9.2 Last Impressions Chest X-Ray 05/26/172204 Signed Impressions: Service Date/Time: Friday, May 26, 2017 22:30 - CONCLUSION: No acute disease. Aaron Simpson MD The patient is resting comfortably and feels better, is alert and in no distress. The patients results and examination findings were discussed. The repeat examination is unremarkable and benign. The history, exam, diagnostic testing, and current condition do not suggest any significant pathology to warrant further testing, continued ED treatment, admission, or surgical evaluation at this point. The vital signs have been stable. The patient does not have uncontrollable pain, intractable vomiting, or other significant symptoms. The patient's condition is stable and appropriate for discharge. The patient will pursue further outpatient evaluation with a primary care physician or other designated or consulting physician as indicated in the discharge instructions. The patient expressed understanding and was agreeable with this plan. Diagnosis Primary Impression: COPD exacerbation Referrals: Jesus Yen DO call for appointment Med/Other Pt SpecificInfo: Prescription(s) given Scripts Prednisone (Prednisone) 20 Mg Tab 40 MG PO DAILY for 4 Days, #8 TAB 0 Refills Take 40 mg (2 tablets) daily for 5 days Prov: Malachi Betancourt MD 05/27/17 Disposition: DISCHARGE HOME Condition: Stable Malachi Betancourt MD May 27, 2017 00:43
[2017-05-27] MEDS ORDERED: methylPREDNISolone SOD SUCC 40 MG/1 ML VIAL IV PUSH SCH (06:00)
[2017-05-27] MEDS ORDERED: RESP: ALBUTEROL 2.5 MG/IPRATROPIUM 0.5 MG NEB (SCH) NEB (08:00)
[2017-05-27] MEDS ORDERED: BUDESONIDE-FORMOTEROL 160/4.5 MCG INHALER INH SCH (09:00)
[2017-05-27] MEDS ORDERED: guaiFENesin E.R. 600 MG TAB PO SCH (09:00)
[2017-05-27] MEDS ORDERED: SODIUM CHLORIDE 0.9% FLUSH 10 ML FLUSH IV FLUSH SCH (09:00)
[2017-05-27] MEDS ORDERED: DOCUSATE SODIUM 50 MG/SENNA 8.6 MG TAB PO SCH (09:00)
--- NOTE | 2017-05-27 13:27 | EKG ---
Date Performed: 05/26/2017 Time Performed: 22:07:46 PTAGE: 71 years EKG: SINUS TACHYCARDIA WITH OCCASIONAL VENTRICULAR PREMATURE COMPLEXES BORDERLINE LEFT AXIS MALISSA ATION Since the prior tracing, there has been no significant change ABNORMAL RHYTHM ECG NO PREVIOUS TRACING DOCTOR: Ananth Canales Interpretating Date/Time 05/27/2017 13:25:09
== END 2017-05-27 02:19 | disposition home or self-care (01) ==
LOC: NEPC 21:59 → NEDA 23:53
PROVIDERS: ADMIT Hospitalist; ATTEND Hospitalist
DX: J44.1 Chronic obstructive pulmonary disease with (acute) exacerbation (principal); E78.00 Pure hypercholesterolemia, unspecified; K21.9 Gastro-esophageal reflux disease without esophagitis; R32 Unspecified urinary incontinence; I10 Essential (primary) hypertension; Z79.899 Other long term (current) drug therapy; R00.0 Tachycardia, unspecified
CPT/HCPCS: 71045; 80048; 85025; 93005; 94640; 94664; 96360; 99285; G0378; J7030

== ENCOUNTER → 2017-09-26 | Outpatient (CLI) | payer OTHER ==
--- NOTE | 2017-10-02 10:12 | RSPPFT ---
DATE OF PROCEDURE: 09/26/17 COMMENTS: VOLUMES DYNAMIC: FVC moderately reduced; FEV1 severely reduced. STATIC: FRC and TLC mildly reduced; RV normal. FLOWS: FEV1% and FEF 25-75 severely reduced. DIFFUSION; Severely reduced. FLOW VOLUME LOOP; Pattern of variable intrathoracic airways obstruction. IMPRESSION: Very severe obstructive ventilatory defect with reduction in diffusion consistent with emphysema. There is improvement post-bronchodilator.
== END ==
LOC: HRSP 09:38
PROVIDERS: ATTEND Internal Medicine
DX: J44.9 Chronic obstructive pulmonary disease, unspecified (principal)
CPT/HCPCS: 36600; 82805; 94060; 94618; 94726; 94729

== ENCOUNTER 2017-10-13 07:15 | Emergency (ER) | payer OTHER ==
[~2017-10-13] VITALS: Ht 165.1 cm; Wt 67.7 kg
[2017-10-13 07:24] VITALS: BP 96/62; PULSE 121; RESP 18; O2SAT 96
[2017-10-13 07:34] VITALS: BP 96/62; PULSE 95; RESP 20; O2SAT 95
[2017-10-13 07:37] VITALS: TEMP 99.4
[2017-10-13] MEDS ORDERED: SODIUM CHLORID 0.9% 500 ML INJ 500 ML IV ONE ×2 (07:45→09:15)
[2017-10-13] MEDS ORDERED: SODIUM CHLORIDE 0.9% FLUSH 10 ML FLUSH IVF PRN (07:45)
--- NOTE | 2017-10-13 07:45 | PD ---
HPI Chief Complaint: Respiratory Distress Time Seen by Provider: 07:29 Travel History International Travel<30 days: No Contact w/Intl Traveler<30days: No Traveled to known affect area: No History of Present Illness HPI Patient presents to the emergency department complaining of shortness of breath that began at 3:00 this morning. Took an antianxiety pill but that did not help. Was brought in by EMS and per EMS his temperature was 100.6. Patient states that he had a pulmonary function test last month and was told that he needed a possible lung transplant. Reporting a chronic cough productive with green and clear phlegm, chills, epigastric abdominal pain which he states is secondary to acid reflux. He denies current epigastric abdominal pain and states that the symptoms have been present intermittently for a year. He denies chest pain. 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 Patient is on 2 L of home O2 at night. Patient denies urinary frequency or dysuria. PFSH Past Medical History Hx Anticoagulant Therapy: No Asthma: No Heart Rhythm Problems: No Cancer: No Cardiovascular Problems: Yes High Cholesterol: Yes Chest Pain: Yes Congestive Heart Failure: No COPD: Yes Diabetes: No Diminished Hearing: Yes (B HEARING AIDES) Endocrine: No GERD: Yes Genitourinary: Yes (incontinence) Hypertension: Yes Immune Disorder: No Musculoskeletal: No Neurologic: No Psychiatric: No Reproductive: No Respiratory: Yes (COPD) Sleep Apnea: No ?: Not Past Surgical History Abdominal Surgery: No Cardiac Surgery: No Ear Surgery: No Endocrine Surgery: No Eye Surgery: Yes (CATARACT) Genitourinary Surgery: No Gynecologic Surgery: No Oral Surgery: No Thoracic Surgery: Yes (pneumothorax) Other Surgery: Yes Social History Alcohol Use: Yes Tobacco Use: No Substance Use: No Allergies-Medications (Allergen,Severity, Reaction): Coded Allergies: No Known Allergies (Verified Allergy, Unknown, 05/27/17) Reported Meds & Prescriptions Reported Meds & Active Scripts Active Prednisone 20 Mg Tab 40 Mg PO DAILY 5 Days Take 40 mg (2 tablets) daily for 5 days Prednisone 20 Mg Tab 40 Mg PO DAILY 4 Days Take 40 mg (2 tablets) daily for 5 days Prednisone 20 Mg Tab 20 Mg PO BID Zithromax Z-Genaro (Azithromycin) 250 Mg Dspk 250 Mg PO DIRECTED 500 MG (2 tabs) day 1, then 1 tab days 2-5. Prednisone (21) 10 mg tab Dose Pack (Prednisone) 10 Mg Pack 10 Mg PO DIRECTED Prednisone 20 Mg Tab 40 Mg PO DAILY 4 Days Reported Albuterol Neb (Albuterol Sulfate) 2.5 Mg/3 Ml Neb 2.5 Mg NEB TID NEB PRN Omeprazole 20 Mg Tab 20 Mg PO DAILY Vitamin D3 (Cholecalciferol) 5,000 Unit Cap 5,000 Units PO DAILY Alendronate (Alendronate Sodium) 70 Mg Tab 70 Mg PO Q7D Combivent Respimat Inh (Ipratropium-Albuterol Inh) 20-100 Detention/Act Aero 1 Puff INH QID Symbicort Inh (Budesonide/Formoterol Fumarate) 80-4.5 Mcg/Act Aero 2 Puff INH Q12HR Combivent Respimat Inh (Ipratropium-Albuterol Inh) 20-100 Detention/Act Aero 1 Puff INH QID Tamsulosin (Tamsulosin HCl) 0.4 Mg Cap 2 Cap PO HS Pravastatin 20 Mg Tab 10 Mg PO DAILY Lisinopril 10 Mg Tab 10 Mg PO DAILY Guaifenesin 400 Mg Tab 2 Cap PO BID Fish Oil ([place]-3 Fatty Acids) 1,000 Mg Cap Multiple Vitamin 1 Tab 1 Tab PO DAILY Review of Systems Except as stated in HPI: all other systems reviewed are Neg Physical Exam Narrative GENERAL: No acute distress. SKIN: Focused skin assessment warm/dry. HEAD: Atraumatic. Normocephalic. EYES: Pupils equal and round. No scleral icterus. No injection or drainage. ENT: No nasal bleeding or discharge. Mucous membranes pink and moist. NECK: Trachea midline. No JVD. CARDIOVASCULAR: Regular rate and rhythm. No murmur appreciated. RESPIRATORY: No accessory muscle use. Clear to auscultation. Breath sounds equal bilaterally. GASTROINTESTINAL: Abdomen soft, non-tender, nondistended. Hepatic and splenic margins not palpable. MUSCULOSKELETAL: No obvious deformities. No clubbing. No cyanosis. No edema. NEUROLOGICAL: Awake and alert. No obvious cranial nerve deficits. Motor grossly within normal limits. Normal speech. PSYCHIATRIC: Appropriate mood and affect; insight and judgment normal. Data Data Last Documented VS Vital Signs Date Time Temp Pulse Resp B/P (MAP) Pulse Ox O2 Delivery O2 Flow Rate FiO2 10/13/17 08:19 98.7 104 20 102/60 (74) 97 2.00 10/13/17 07:53 Nasal Cannula Orders Orders Complete Blood Count With Diff (10/13/17 07:40) Comprehensive Metabolic Panel (10/13/17 07:40) B-Type Natriuretic Peptide (10/13/17 07:40) D-Dimer (10/13/17 07:40) Act Partial Throm Time (Ptt) (10/13/17 07:40) Prothrombin Time / Inr (Pt) (10/13/17 07:40) Magnesium (Mg) (10/13/17 07:40) Ckmb (Isoenzyme) Profile (10/13/17 07:40) Troponin I (10/13/17 07:40) Urinalysis - C+S If Indicated (10/13/17 07:40) Blood Culture (10/13/17 07:40) Iv Access Insert/Monitor (10/13/17 07:40) Electrocardiogram (10/13/17 07:40) Ecg Monitoring (10/13/17 07:40) Oximetry (10/13/17 07:40) Oxygen Administration (10/13/17 07:40) Chest, Single Ap (10/13/17 07:40) Sodium Chloride 0.9% Flush (Ns Flush) (10/13/17 07:45) Lactic Acid (10/13/17 07:40) Sodium Chlorid 0.9% 500 Ml Inj (Ns 500 M (10/13/17 07:45) Albuterol-Ipratropium Neb (Duoneb Neb) (10/13/17 08:00) Sputum Culture And Gram Stain (10/13/17 07:47) Ct Pulmonary Angiogram (10/13/17 08:42) CKMB (10/13/17 07:45) CKMB% (10/13/17 07:45) Sodium Chlorid 0.9% 500 Ml Inj (Ns 500 M (10/13/17 09:15) Iohexol 350 Inj (Omnipaque 350 Inj) (10/13/17 10:58) Urine Culture (10/13/17 11:13) Methylprednisolone So Succ Inj (Solumedr (10/13/17 12:45) Ed Discharge Order (10/13/17 12:41) Labs Laboratory Tests Test 10/13/17 07:45 10/13/17 07:50 10/13/17 11:13 White Blood Count 8.3 TH/MM3 Red Blood Count 4.11 MIL/MM3 Hemoglobin 13.7 GM/DL Hematocrit 40.5 % Mean Corpuscular Volume 98.5 FL Mean Corpuscular Hemoglobin 33.4 PG Mean Corpuscular Hemoglobin Concent 33.9 % Red Cell Distribution Width 13.0 % Platelet Count 183 TH/MM3 Mean Platelet Volume 7.1 FL Neutrophils (%) (Auto) 82.1 % Lymphocytes (%) (Auto) 9.2 % Monocytes (%) (Auto) 7.7 % Eosinophils (%) (Auto) 0.6 % Basophils (%) (Auto) 0.4 % Neutrophils # (Auto) 6.8 TH/MM3 Lymphocytes # (Auto) 0.8 TH/MM3 Monocytes # (Auto) 0.6 TH/MM3 Eosinophils # (Auto) 0.0 TH/MM3 Basophils # (Auto) 0.0 TH/MM3 CBC Comment DIFF FINAL Differential Comment Prothrombin Time 10.2 SEC Prothromb Time International Ratio 1.0 RATIO Activated Partial Thromboplast Time 23.0 SEC D-Dimer Quantitative (PE/DVT) 1.72 MG/L FEU Blood Urea Nitrogen 20 MG/DL Creatinine 1.00 MG/DL Random Glucose 135 MG/DL Total Protein 7.1 GM/DL Albumin 3.6 GM/DL Calcium Level 9.1 MG/DL Magnesium Level 1.7 MG/DL Alkaline Phosphatase 61 U/L Aspartate Amino Transf (AST/SGOT) 20 U/L Alanine Aminotransferase (ALT/SGPT) 23 U/L Total Bilirubin 0.5 MG/DL Sodium Level 143 MEQ/L Potassium Level 4.2 MEQ/L Chloride Level 106 MEQ/L Carbon Dioxide Level 26.2 MEQ/L Anion Gap 11 MEQ/L Estimat Glomerular Filtration Rate 74 ML/MIN Total Creatine Kinase 107 U/L Creatine Kinase MB 1.1 NG/ML Troponin I LESS THAN 0.02 NG/ML B-Type Natriuretic Peptide 25 PG/ML Lactic Acid Level 1.0 mmol/L Urine Color YELLOW Urine Turbidity CLEAR Urine pH 7.0 Urine Specific [place] 1.056 Urine Protein NEG mg/dL Urine Glucose (UA) NEG mg/dL Urine Ketones NEG mg/dL Urine Occult Blood NEG Urine Nitrite NEG Urine Bilirubin NEG Urine Urobilinogen 2.0 OR LESS mg/dL Urine Leukocyte Esterase TRACE Urine RBC 1 /hpf Urine WBC 12 /hpf Urine Squamous Epithelial Cells <1 /hpf Microscopic Urinalysis Comment CULTURE INDICATED MDM Medical Decision Making Medical Screen Exam Complete: Yes Emergency Medical Condition: Yes Interpretation(s) ECG: Sinus tachycardia 129, left axis deviation, normal intervals, no ST elevation, low voltage Labs: BUN/d-dimer /glucose increased, lactate and troponin within normal limits, CT chest: FINDINGS: Pulmonary Arteries: No filling defects are seen in the pulmonary arteries out to the subsegmental vessels. The left and right pulmonary arteries are normal in diameter. Lung: Moderate emphysematous changes. Stable minimal parenchymal opacity pleural-based right base. Effusion: None. Mediastinum: No evidence of mediastinal or hilar adenopathy. Other: The axilla is unremarkable. CONCLUSION: 1. Moderate edematous changes otherwise negative. 2. No central pulmonary emboli. Last Impressions Chest X-Ray 10/13/17 0740 Signed Impressions: CONCLUSION: Blunting of the costophrenic recesses consistent with minimal pleural thickenin g and/or tiny pleural effusions. Differential Diagnosis PE, ACS, pulmonary edema, pneumonia, COPD exacerbation, pleural effusion Narrative Course Patient presents to the emergency department with a history of lung disease complaining of dyspnea. Patient was placed on a quality assurance monitor body and IV access was obtained. He is afebrile, hypotensive, and tachycardic. Labs, EKG, chest x -ray, and IV fluids ordered. 0748: Patient has been ordered 2 duo nebs. 1239: Patient given 125 mg IV Solu-Medrol. BP 122/65 heart rate 90 after 1 liter IV normal saline. O2 sat 99% on 3 L oxygen. Patient will be discharged with urine culture pending. As he has no urinary symptoms we will not DC with antibiotics at this time. 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 Advised to give patient 125 mg IV Solu-Medrol and DC the 40 mg daily prednisone 5 days. Also wanted patient to call his office on Monday, use oxygen 24 7 now, and return if needed. Discussed the presentation and the workup did not think patient need to be admitted. Diagnosis Primary Impression: COPD exacerbation Additional Impression: Dyspnea Qualified Codes: R06.00 - Dyspnea, unspecified Patient Instructions: Dyspnea (ED), General Instructions Additional Instructions: 1. Per Dr. Gaitan: Follow-up with his office on Monday, use oxygen 21/11 and prednisone 40 mg by mouth once a day for 5 days. Return to the ER if needed for fever, vomiting, chest pain, lower extremity edema, worsening shortness of breath, or for any new/worrisome/worsening symptoms. Med/Other Pt SpecificInfo: Prescription(s) given Scripts Prednisone (Prednisone) 20 Mg Tab 40 MG PO DAILY for 5 Days, #10 TAB 0 Refills Take 40 mg (2 tablets) daily for 5 days Prov: Sania Watkins MD 10/13/17 Disposition: 01 DISCHARGE HOME Condition: Stable Sania Watkins MD Oct 13, 2017 07:45
[2017-10-13 07:50] VITALS: O2SAT 99
[2017-10-13] MEDS: RESP: ALBUTEROL 2.5 MG/IPRATROPIUM 0.5 MG NEB (SCH) INH ×2 (07:52→07:53)
[2017-10-13 07:53] VITALS: BP 96/62; PULSE 99; RESP 18; O2SAT 98
[2017-10-13 08:10] LABS: AUTOMATED NEUTROPHIL # 6.8 TH/MM3 (1.8-7.7); BASOPHIL % 0.4 % (0.0-2.0); EOSINOPHIL % 0.6 % (0.0-4.0); HEMATOCRIT 40.5 % (39.0-51.0); HEMOGLOBIN 13.7 GM/DL (13.0-17.0); LYMPH % 9.2 % (9.0-44.0); LYMPHOCYTE # 0.8 TH/MM3 (1.0-4.8); MEAN CELL VOLUME 98.5 FL (80.0-100.0); MEAN CORPUSCULAR HEMOGLOBIN 33.4 PG (27.0-34.0); MEAN CORPUSCULAR HGB CONC 33.9 % (32.0-36.0); MEAN PLATELET VOLUME 7.1 FL (7.0-11.0); MONO % 7.7 % (0.0-8.0); MONOCYTE # 0.6 TH/MM3 (0-0.9); NEUT % 82.1 % (16.0-70.0); PLATELET COUNT 183 TH/MM3 (150-450); RED BLOOD COUNT 4.11 MIL/MM3 (4.50-5.90); WHITE BLOOD COUNT 8.3 TH/MM3 (4.0-11.0)
--- NOTE | 2017-10-13 08:13 | RADRPT ---
EXAM DATE: 10/13/2017 7:59 AM EDT AGE/SEX: 72 years / Male INDICATIONS: Shortness of breath. CLINICAL DATA: This is the patient's initial encounter. Patient reports that signs and symptoms have been present for 1 day and indicates a pain score of 0/10. MEDICAL/SURGICAL HISTORY: Chronic obstructive pulmonary disease. None. COMPARISON: [facility] – [place], CHEST SINGLE AP, 05/26/2017. . FINDINGS: There is blunting of the costophrenic recesses consistent with minimal pleural thickening and/or tiny pleural effusions. The heart is normal. The pulmonary vascular pattern is normal. The lungs are yasmeen r. CONCLUSION: Blunting of the costophrenic recesses consistent with minimal pleural thickening and/or tiny pleural effusions. Electronically signed by: Dre Munoz MD 10/13/2017 8:12 AM EDT
[2017-10-13 08:19] VITALS: BP 102/60; PULSE 104; RESP 20; TEMP 98.7; O2SAT 97
[2017-10-13 08:25] LABS: PROTHROMBIN TIME - PATIENT 10.2 SEC (9.8-11.6)
[2017-10-13 08:26] LABS: D-DIMER 1.72 MG/L FEU (0.00-0.50)
[2017-10-13 08:54] LABS: ALBUMIN 3.6 GM/DL (3.4-5.0); ALKALINE PHOSPHATASE 61 U/L (45-117); ALT (GPT) 23 U/L (12-78); AST (GOT) 20 U/L (15-37); BICARBONATE 26.2 MEQ/L (21.0-32.0); BLOOD UREA NITROGEN 20 MG/DL (7-18); CALCIUM 9.1 MG/DL (8.5-10.1); CHLORIDE 106 MEQ/L (98-107); GLOMERULAR FILTRATION RATE 74 ML/MIN (>89); GLUCOSE,RANDOM 135 MG/DL (74-106); MAGNESIUM 1.7 MG/DL (1.5-2.5); SODIUM (NA) 143 MEQ/L (136-145); TOTAL BILIRUBIN ADULT 0.5 MG/DL (0.2-1.0); TOTAL PROTEIN 7.1 GM/DL (6.4-8.2); TROPONIN I LESS THAN 0.02 NG/ML (0.02-0.05)
[2017-10-13] MEDS ORDERED: IOHEXOL 350 MG/ML 10 ML VIAL (for RAD DIAG) IVCONTRAST ONE (10:58)
--- NOTE | 2017-10-13 11:01 | RADRPT ---
EXAM DATE: 10/13/2017 10:57 AM EDT AGE/SEX: 72 years / Male INDICATIONS: Short of breath. CLINICAL DATA: This is the patient's initial encounter. Patient reports that signs and symptoms have been present for 1 day and indicates a pain score of 0/10. MEDICAL/SURGICAL HISTORY: Chronic obstructive pulmonary disease. Hypertension. Cardiovascular dis ease. pneumonia None. RADIATION DOSE: 18.09 CTDI (mGy) COMPARISON: [facility] – [place], [place] PULMONARY ANGIOGRAM, 07/09/2016. . TECHNIQUE: Volumetric scanning was performed using a multi-row detector CT scanner during bolus infu didier of 70 ml Omnipaque 350 (iohexol) nonionic water-soluble contrast as a single exam dose. The kathy a was post processed with a variety of visualization algorithms including full volume maximum intensi ty projection and sliding thin slab reformation. Using automated exposure control and adjustment of the mA and/or kV according to patient size, radiation dose was kept as low as reasonably achievable t o obtain optimal diagnostic quality images. FINDINGS: Pulmonary Arteries: No filling defects are seen in the pulmonary arteries out to the subsegmental ve ssels. The left and right pulmonary arteries are normal in diameter. Lung: Moderate emphysematous changes. Stable minimal parenchymal opacity pleural-based right base. Effusion: None. Mediastinum: No evidence of mediastinal or hilar adenopathy. Other: The axilla is unremarkable. CONCLUSION: 1. Moderate edematous changes otherwise negative. 2. No central pulmonary emboli. Electronically signed by: Vaughn Rowland MD 10/13/2017 11:00 AM EDT
[2017-10-13 11:35] LABS: BILIRUBIN, URINE NEG (NEG); BLOOD, URINE NEG (NEG); GLUCOSE,URINE NEG (NEG); KETONE, URINE NEG (NEG); NITRITE,URINE NEG (NEG); SQUAMOUS EPITHELIAL CELL URINE <1 /hpf (0-5); URINE COLOR YELLOW (YELLW/STRAW); URINE LEUKOCYTE ESTERASE TRACE (NEG)
[2017-10-13] MEDS ORDERED: PRED20 PO (12:34)
[2017-10-13] MEDS ORDERED: methylPREDNISolone SOD SUCC 125 MG/2 ML VIAL IV PUSH ONE (12:45)
--- NOTE | 2017-10-13 16:18 | EKG ---
Date Performed: 10/13/2017 Time Performed: 07:43:54 PTAGE: 72 years EKG: SINUS TACHYCARDIA LEFT AXIS DEVIATION LOW QRS VOLTAGE IN EXTREMITY LEADS ABNORMAL ECG PREVIOUS TRACING : 05/26/2017 22.07 No significant change from previous tracing noted. DOCTOR: Dean Cole Interpretating Date/Time 10/13/2017 16:17:26
== END 2017-10-13 13:08 | disposition home or self-care (01) ==
LOC: NEPC 07:15
DX: J44.1 Chronic obstructive pulmonary disease with (acute) exacerbation (principal); E78.00 Pure hypercholesterolemia, unspecified; K21.9 Gastro-esophageal reflux disease without esophagitis; I10 Essential (primary) hypertension; R00.0 Tachycardia, unspecified; R06.02 Shortness of breath; Z79.899 Other long term (current) drug therapy; Z99.81 Dependence on supplemental oxygen
CPT/HCPCS: 71045; 71275; 80053; 81001; 82550; 82552; 83605; 83735; 83880; 84484; 85025; 85379; 85610; 85730; 87040; 87070; 87077; 87086; 87186; 87205; 93005; 94640; 94664; 96361; 96374; 99285; J2930; J7040; Q9967

== ENCOUNTER 2018-03-19 19:00 | Inpatient (IN) ==
[2018-03-19] MEDS ORDERED: Azithromycin Inj 500 MG in Sodium Chlor 0.9% Inj 250 ML IV.SIG ONE (19:25)
[2018-03-19] MEDS ORDERED: Acetaminophen 325 MG Tablet PO ONE (19:25)
[2018-03-19] MEDS ORDERED: Sodium Chlor 0.9% Inj 500 ML IV.SIG ONE (19:26)
--- NOTE | 2018-03-19 19:33 | ED ---
HPI General Chief Complaint: Respiratory Symptoms Stated Complaint: Respitory Time Seen by Provider: 03/19/18 19:01 Source: patient and EMS Mode of arrival: EMS Limitations: other (SOB) History of Present Illness HPI Narrative: 72-year-old male that presents to the ED for evaluation of shortness of breath. Patient has a history of COPD. Patient was brought here via [facility] for evaluation of respiratory distress. Patient himself can barely provide any information. From most of the history was obtained using from [facility] patient has a history of COPD. He does have a history of high blood pressures and takes digoxin. Patient himself cannot provide much information secondary to significant shortness of breath. Patient does tell me that he does take oxygen and notes just when I asked him to call much and he says 2 L. He denies any urinary or bowel movement issues. He denies any chest pain just having trouble breathing. Apparently per report he also was found to have a 101 fever and Had chills today. Related Data Home Medications Medication Instructions Recorded Confirmed alendronate 70 mg PO QWEEK 03/19/18 03/19/18 alprazolam 0.25 mg PO BID 03/19/18 03/19/18 budesonide-formoterol [Symbicort] 2 puff INHALATION BID 03/19/18 03/19/18 guaifenesin 400 mg PO Q4H PRN 03/19/18 03/19/18 ipratropium-albuterol 3 ml INHALATION QID 03/19/18 03/19/18 ipratropium-albuterol [Combivent 1 puff INHALATION Q6H 03/19/18 03/19/18 Respimat] lisinopril 10 mg PO DAILY 03/19/18 03/19/18 omeprazole 40 mg PO DAILY 03/19/18 03/19/18 pravastatin 10 mg PO DAILY 03/19/18 03/19/18 simethicone 125 mg PO DAILY 03/19/18 03/19/18 tamsulosin 0.4 mg PO DAILY 03/19/18 03/19/18 Allergies Allergy/AdvReac Type Severity Reaction Status Date / Time No Known Allergies Allergy Unknown Uncoded 05/27/17 00:08 Review of Systems ROS: all other systems reviewed are negative PMFSH History History 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: 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 HEAD: Atraumatic. Normocephalic. EYES: Pupils equal and round. No scleral icterus. No injection or drainage. ENT: No nasal bleeding or discharge. Mucous membranes pink and moist. Tongue is midline. No uvula deviation. NECK: Trachea midline. No JVD. CARDIOVASCULAR: Regular rate and rhythm. No murmur appreciated. RESPIRATORY: No accessory muscle use. Significant wheezing heard in all lung cardona. Breath sounds equal bilaterally. GASTROINTESTINAL: Abdomen soft, non-tender, nondistended. Hepatic and splenic margins not palpable. MUSCULOSKELETAL: No obvious deformities. No clubbing. No cyanosis. No edema. Full range of motion of the upper and lower extremities bilaterally. 2+ pulses bilaterally. NEUROLOGICAL: Awake and alert. No obvious cranial nerve deficits. Motor grossly within normal limits. Normal speech. PSYCHIATRIC: Appropriate mood and affect; insight and judgment normal. Course Initial Documented Vital Signs Temperature 101.8 F H 03/19/18 19:04 Pulse Rate 140 H 03/19/18 19:04 Pulse Oximetry 98 03/19/18 19:04 Last Documented Vital Signs Temperature 103.1 F H 03/19/18 20:00 Pulse Rate 119 H 03/19/18 20:00 Respiratory Rate 30 H 03/19/18 20:00 Blood Pressure 102/56 L 03/19/18 20:00 Pulse Oximetry 98 03/19/18 21:00 Critical Care Time Critical Care Time: Yes Total Critical Care Time: 32 Attestation: Aggregate critical care time was 32 minutes. Time to perform other separately billable procedures was not included in the critical care time. My time did not include minutes spent treating any other patients simultaneously or on activities that did not directly contribute to the patient's treatment. The services I provided to this patient were to treat and/or prevent clinically significant deterioration that could result in: Respiratory failure requiring intubation, versus hypoxic brain injury, versus cardiovascular collapse from sepsis I provided critical care services requiring my management, as noted below: Chart data review, documentation time, medication orders and management, vital sign assessments/reviewing monitor data, ordering and reviewing lab tests, ordering and interpreting/reviewing x-rays and diagnostic studies, care of the patient and discussion of the patient with the admitting physicians. Medical Decision Making RICHIE Attestation RICHIE supervised visit: Yes Attestation: I, Dr. Doyle, have reviewed the advance practice practitioner's documentation and am in agreement, met with the patient face to face, made the diagnosis, and the medical decision making was done by me. The patient was initially evaluated by Brad, the RICHIE. Please see their complete history and physical. *My assessment and Findings: The patient presents with a history of shortness of breath that began sometime prior to arrival. The patient is very dyspneic on arrival and having difficulty providing any history related to his conversational dyspnea. The patient was immediately placed on BiPAP on arrival. The patient has a history of COPD and is examined. Prior to arrival the patient reportedly was given by ambulance services Solu-Medrol and a DuoNeb. The patient is noted to be tachycardic on arrival and appears to be in a sinus tachycardia with fever, temp of 101.8. Sepsis workup was started. During the course of the patient's emergency department visit, the patient's history, examination, and differential diagnosis were reviewed with the patient. The patient was placed on a casting cleaner with oximetry and frequent blood pressure monitoring. The patient had IV access obtained and blood work sent for analysis. The patient was initially provided normal saline 500 mL bolus, Tylenol 650 p.o. x1. The patient was anxious on BiPAP and was given Ativan 1 mg IV. The patient was continued on duo nebs. The patient's diagnostic studies were reviewed and remarkable for a white count is 12.5, hemoglobin 12.9, platelets 191 with 75.8 neutrophils urinalysis shows hyperinflated lungs, mild suspected atelectasis or consolidation at the lateral right lung base. PT 10.5, PTT 22, chemistries remarkable for a CO2 of 32.5, anion gap 4, BUN 21, GFR of 82, glucose 116, initial set of cardiac enzymes are within normal limits, BMP within normal limits at 55, lactic acid 1.4. An ABG on 04/05 at 40% reveals a pH of 7.4, PCO2 45, PO2 140, bicarb 27, base excess 2.3 the patient will be weaned off of the BiPAP as tolerated. The patient's results were discussed with the patient, including the plan of care. I explained that further testing and/ or monitoring is indicated based on the patient's history, examination, and/ or laboratory findings. Therefore, I recommended admission for additional evaluation. The patient expressed understanding and was agreeable with this plan. The patient was admitted to the hospital in guarded condition and sent to a bed under the care of the piercing mill operator's service. MDM Narrative Medical decision making narrative: 72-year-old male presents to the ED for evaluation of shortness of breath. Patient was properly examined and was found to have signs and symptoms consistent appears to be respiratory distress. Patient was initially evaluated by me and was having a little trouble breathing here patient was put on BiPAP started on breathing treatments. Per [facility] she was given Solu-Medrol. Labs and imaging were ordered. Patient was found to have a fever and was given Tylenol. my attending Dr. Doyle was made aware of findings and evaluated the patient who agrees with plan. Patient was rechecked and does feel improved but still very tachypneic and still with high fever. Case was discussed with my attending who recommends admission to the intensive care. Case discussed with Dr. Alvarado progress admission to her service. Patient was admitted to the intensive care. Started on Rocephin and azithromycin IV by my attending. Lab work otherwise unremarkable alert and what appears to be possible pneumonia on the chest x-ray. Medical Screen Exam Complete: Yes Emergency Medical Condition: Yes Differential Diagnosis Differential Diagnosis: Shortness of breath versus respiratory distress versus pneumonia versus sepsis versus COPD exacerbation Medical Records Medical records reviewed: Yes I reviewed the patient's medical records. Lab Data Lab results reviewed: Yes I reviewed the patient's lab results. Result diagrams: 03/19/18 20:29 03/19/18 20:29 Lab Results 03/19/18 03/19/18 03/19/18 Range/Units 20:29 20:29 20:29 WBC 12.5 H (4.0-11.0) th/mm3 RBC 3.96 L (4.50-5.90) mil/mm3 Hgb 12.9 L (13.0-17.0) gm/dL Hct 39.4 (39.0-51.0) % MCV 99.7 (80.0-100.0) fL MCH 32.7 (27.0-34.0) pg MCHC 32.8 (32.0-36.0) % RDW 13.3 (11.6-17.2) % Plt Count 191 (150-450) th/mm3 MPV 7.6 (7.0-11.0) fL Neut % (Auto) 75.8 H (16.0-70.0) % Lymph % (Auto) 18.1 (9.0-44.0) % [place] % (Auto) 4.9 (0.0-8.0) % Eos % (Auto) 0.9 (0.0-4.0) % Baso % (Auto) 0.3 (0.0-2.0) % Neut # (Auto) 9.4 H (1.8-7.7) th/mm3 Lymph # (Auto) 2.3 (1.0-4.8) th/mm3 [place] # (Auto) 0.6 (0.0-0.9) th/mm3 Eos # (Auto) 0.1 (0.0-0.4) th/mm3 Baso # (Auto) 0.0 (0.0-0.2) th/mm3 WBC Differential . Differential Comment Auto diff final PT (9.8-11.6) sec INR Ratio APTT (23.4-31.7) sec Puncture Site Patient Temperature O2 Saturation (90-100) % ABG pH (7.380-7.420) ABG pCO2 (38-42) mmHg ABG pO2 (61-120) mmHg ABG HCO3 (22-26) mmol/L ABG O2 Content (12.0-20.0) Vol % ABG Base Excess (-2-2) mmol/L ABG Methemoglobin (0-2) % Be Test Hemoglobin (12.0-16.0) G/DL Carboxyhemoglobin (0-4) % O2 Delivery Device Vent Setting Inspired O2 % Critical Value Sodium 142 (136-145) meq/L Potassium 4.1 (3.5-5.1) meq/L Chloride 106 (98-107) meq/L Carbon Dioxide 32.5 H (21.0-32.0) meq/L Anion Gap 4 L (5-15) meq/L BUN 21 H (7-18) mg/dL Creatinine 0.91 (0.60-1.30) mg/dL Estimated GFR 82 L (>89) mL/min Random Glucose 116 H (74-106) mg/dL Lactic Acid (0.4-2.0) mmol/L Calcium 9.0 (8.5-10.1) mg/dL Magnesium 1.7 (1.5-2.5) mg/dL Total Bilirubin 0.2 (0.2-1.0) mg/dL AST 20 (15-37) U/L ALT 22 (12-78) U/L Alkaline Phosphatase 61 (45-117) U/L Total Creatine Kinase 117 (39-308) U/L CK-MB (CK-2) 2.5 (0.5-3.6) ng/mL Troponin I Less than 0.02 L (0.02-0.05) ng/mL B-Natriuretic Peptide 55 (0-100) pg/mL Total Protein 7.6 (6.4-8.2) g/dL Albumin 3.9 (3.4-5.0) g/dL 03/19/18 03/19/18 03/19/18 Range/Units 20:29 20:30 20:39 WBC (4.0-11.0) th/mm3 RBC (4.50-5.90) mil/mm3 Hgb (13.0-17.0) gm/dL Hct (39.0-51.0) % MCV (80.0-100.0) fL MCH (27.0-34.0) pg MCHC (32.0-36.0) % RDW (11.6-17.2) % Plt Count (150-450) th/mm3 MPV (7.0-11.0) fL Neut % (Auto) (16.0-70.0) % Lymph % (Auto) (9.0-44.0) % [place] % (Auto) (0.0-8.0) % Eos % (Auto) (0.0-4.0) % Baso % (Auto) (0.0-2.0) % Neut # (Auto) (1.8-7.7) th/mm3 Lymph # (Auto) (1.0-4.8) th/mm3 [place] # (Auto) (0.0-0.9) th/mm3 Eos # (Auto) (0.0-0.4) th/mm3 Baso # (Auto) (0.0-0.2) th/mm3 WBC Differential Differential Comment PT 10.5 (9.8-11.6) sec INR 1.0 Ratio APTT 22.0 L (23.4-31.7) sec Puncture Site Right radial Patient Temperature 98.6 O2 Saturation 98 (90-100) % ABG pH 7.40 (7.380-7.420) ABG pCO2 45 H (38-42) mmHg ABG pO2 140 H (61-120) mmHg ABG HCO3 27 H (22-26) mmol/L ABG O2 Content 16.1 (12.0-20.0) Vol % ABG Base Excess 2.3 H (-2-2) mmol/L ABG Methemoglobin 0.7 (0-2) % Be Test Present Hemoglobin 11.6 L (12.0-16.0) G/DL Carboxyhemoglobin 0.8 (0-4) % O2 Delivery Device Bipap Vent Setting Ipap=12 epap 6 Inspired O2 40 % Critical Value No Sodium (136-145) meq/L Potassium (3.5-5.1) meq/L Chloride (98-107) meq/L Carbon Dioxide (21.0-32.0) meq/L Anion Gap (5-15) meq/L BUN (7-18) mg/dL Creatinine (0.60-1.30) mg/dL Estimated GFR (>89) mL/min Random Glucose (74-106) mg/dL Lactic Acid 1.4 (0.4-2.0) mmol/L Calcium (8.5-10.1) mg/dL Magnesium (1.5-2.5) mg/dL Total Bilirubin (0.2-1.0) mg/dL AST (15-37) U/L ALT (12-78) U/L Alkaline Phosphatase (45-117) U/L Total Creatine Kinase (39-308) U/L CK-MB (CK-2) (0.5-3.6) ng/mL Troponin I (0.02-0.05) ng/mL B-Natriuretic Peptide (0-100) pg/mL Total Protein (6.4-8.2) g/dL Albumin (3.4-5.0) g/dL Imaging Data Attestation: I personally reviewed and interpreted this imaging study as follows : Radiologist's impression: Chest X-Ray 03/19/18 19:04 CONCLUSION: Hyperinflated lungs. Mild suspected atelectasis or consolidation at the lateral right lung base. ECG Data Attestation: I personally reviewed and interpreted this ECG as follows: Interpretation: EKG shows sinus tachycardia but no obvious sign of acute ischemia. Read by me and attending. Discharge Plan Discharge Disposition Patient Disposition: 30 Still Patient Discharge Details Diagnosis: Acute respiratory distress, Pneumonia Physicians Team ED Provider: Keisha Doyle ED Midlevel Provider: Brad German Primary Care Provider: UNKNOWN, Attending Provider: Chinyere Alvarado Other Providers: Pao Lopez Status ED Status: Admitted Patient
[2018-03-19] MEDS ORDERED: Acetaminophen 325 MG Supp RECTAL ONE (19:48)
--- NOTE | 2018-03-19 20:05 | XR ---
EXAM DATE: 03/19/2018 8:01 PM EST AGE/SEX: 72 years / Male INDICATIONS: Patient presents with severe shortness of breath and history of COPD. CLINICAL DATA: This is the patient's initial encounter. Patient reports that signs and symptoms have been present for 1 day and indicates a pain score of 4/10. MEDICAL/SURGICAL HISTORY: Chronic obstructive pulmonary disease. None. COMPARISON: [facility] – [place], CHEST SINGLE AP, 10/13/2017. . FINDINGS: The heart size is normal. The lungs appear hyperinflated. There is mild increased density seen at the lateral right base. The left lung is grossly clear. CONCLUSION: Hyperinflated lungs. Mild suspected atelectasis or consolidation at the lateral right lung base. Electronically signed by: Shad Escalona MD 03/19/2018 8:03 PM EST
[2018-03-19 20:39] LABS: Baso % (Auto) 0.3 % (0.0-2.0); Eos # (Auto) 0.1 th/mm3 (0.0-0.4); Eos % (Auto) 0.9 % (0.0-4.0); Hematocrit 39.4 % (39.0-51.0); Hemoglobin 12.9 gm/dL (13.0-17.0); Lymph # (Auto) 2.3 th/mm3 (1.0-4.8); Lymph % (Auto) 18.1 % (9.0-44.0); Mean Corpuscular HGB Conc 32.8 % (32.0-36.0); Mean Corpuscular Hemoglobin 32.7 pg (27.0-34.0); Mean Corpuscular Volume 99.7 fL (80.0-100.0); Mean Platelet Volume 7.6 fL (7.0-11.0); Mono # (Auto) 0.6 th/mm3 (0.0-0.9); Mono % (Auto) 4.9 % (0.0-8.0); Neut # (Auto) 9.4 th/mm3 (1.8-7.7); Neut % (Auto) 75.8 % (16.0-70.0); Platelet Count 191 th/mm3 (150-450); Red Blood Count 3.96 mil/mm3 (4.50-5.90); Red Cell Distribution Width 13.3 % (11.6-17.2); White Blood Count 12.5 th/mm3 (4.0-11.0)
[2018-03-19 20:58] LABS: Albumin 3.9 g/dL (3.4-5.0); Anion Gap 4 meq/L (5-15); Aspartate Aminotransferase 20 U/L (15-37); Blood Urea Nitrogen 21 mg/dL (7-18); Carbon Dioxide 32.5 meq/L (21.0-32.0); Chloride 106 meq/L (98-107); Glomerular Filtration Rate 82 mL/min (>89); Glucose,Random 116 mg/dL (74-106); Magnesium 1.7 mg/dL (1.5-2.5); Potassium 4.1 meq/L (3.5-5.1); Sodium 142 meq/L (136-145)
[2018-03-19 20:59] LABS: Alanine Aminotransferase 22 U/L (12-78)
[2018-03-19 21:03] LABS: Alkaline Phosphatase 61 U/L (45-117); Creatine Kinase 117 U/L (39-308); Total Protein 7.6 g/dL (6.4-8.2)
[2018-03-19 21:10] LABS: Prothrombin Time 10.5 sec (9.8-11.6)
[2018-03-19 21:15] LABS: Creatine Kinase MB 2.5 ng/mL (0.5-3.6)
[2018-03-19] MEDS ORDERED: Acetaminophen 325 MG Tablet PO PRN (21:41)
[2018-03-19] MEDS ORDERED: Bisacodyl 10 MG Supp RECTAL PRN (21:41)
[2018-03-19 22:00] LABS: ABG Base Excess 2.3 mmol/L (-2-2); ABG PCO2 45 mmHg (38-42); ABG PO2 140 mmHg (61-120)
--- NOTE | 2018-03-19 22:01 | P.HPCC ---
History of Present Illness Service: Critical care medicine Primary Care Physician: UNKNOWN Chief Complaint: Shortness of breath History of Present Illness: 72-year-old male with past medical history of COPD on 2 L home O2, hypertension, hyperlipidemia, BPH, GERD, anxiety who presented to [facility] emergency department with shortness of breath. He states he is "always short of breath" and "always has a lot of sputum production". His family reports he has been complaining of chills for 4-5 days. He has had increased shortness of breath today since returning home from pulmonary rehab. EVAC was summoned and he was given a breathing treatment in route. Upon arrival to the ED his blood temperature was 101.8. He was also tachycardic in the 130s with labored breathing. He was placed on BiPAP and was given duonebs continuous x3, Rocephin, azithromycin, NS 500 mL IV, and ativan 1 mg IV. CXR showed infiltrate in lateral aspect right lower lung field. White blood cell count is 12.5. He denies any chest pain, hemoptysis, leg swelling, history of venous thromboembolic disease.. He states he feels improved since arrival and has been able to remove Bipap. 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 - Diagnosis (1) CAP (community acquired pneumonia) (2) Acute exacerbation of chronic obstructive pulmonary disease (COPD) (3) Chronic respiratory failure with hypoxia, on home O2 therapy (4) HTN (hypertension) (5) HLD (hyperlipidemia) (6) BPH (benign prostatic hyperplasia) Inpatient Certification: I certify that the inpatient services were ordered in accordance with Medicare regulations governing the order. This includes certification that hospital inpatient services are reasonable and necessary and in the case of services not specified as inpatient-only under 42 CFR 419.22(n), that they are appropriately provided as inpatient services in accordance to with the 2-midnight benchmark under 43 CFR 412.3(e) Estimated Total Length of Stay (Days): 5 Plans for Post Hospital Care: Not yet determined Review of Systems Constitutional: Reports chills Ears, Nose, Mouth, and Throat: Reports hearing loss Cardiovascular: Denies chest pain Respiratory: Reports cough, Reports excessive phlegm production, Reports shortness of breath, Reports shortness of breath with activity, Reports wheezing , Denies coughing up blood Gastrointestinal: Denies abdominal pain Neurologic: Reports abnormal hearing PMFSH - History History Provided By: Patient, Family Member, Medical Record - Medical History Medical History: Medical History (Last Updated 03/20/18 @ 03:45 by Chinyere Alvarado MD) Acid reflux Anxiety BPH (benign prostatic hyperplasia) COPD (chronic obstructive pulmonary disease) Cataract HTN (hypertension) High cholesterol Pneumothorax on left - Surgical History Surgical History: Surgical History (Last Updated 03/20/18 @ 03:45 by Chinyere Alvarado MD) Hx of cataract surgery Hx of chest tube placement - Family History Family History: Family History (Last Updated 03/20/18 @ 03:46 by Chinyere Alvarado MD) Father COPD (chronic obstructive pulmonary disease) Mother Myocardial infarction - Tobacco History Smoking Status: Former smoker Tobacco Type: Cigarettes - Alcohol History How Often Do You Have a Drink Containing Alcohol: Never - Substance Use History Substance History: No History of Abuse - Travel History Recent Travel in the [place] Within the Last 8 Weeks: No Recent Travel Out of the Country Within the Last 8 Weeks: No - Immunization History Tetanus Immunization: Unsure Medications and Allergies Active Medications: Active Medications Acetaminophen (Tylenol) 650 mg PO Q6H PRN PRN Reason: PAIN 1-10 AND/OR FEVER >101F Al Hydroxide/Mg Hydroxide (Milk Of Magnesia Liq) 30 ml PO Q12H PRN PRN Reason: Mild Constipation Albuterol (Albuterol Neb (Prn)) 2.5 mg NEB Q2HR NEB PRN PRN Reason: SHORTNESS OF BREATH/WHEEZING Albuterol (Duoneb Neb (Brandie)) 1 ampul NEB Q4HR NEB BRANDIE Bisacodyl (Dulcolax Supp) 10 mg RECTAL DAILY PRN PRN Reason: SEVERE CONSITIPATION Chlorhexidine Gluconate (Chlorhexidine 2% Cloth) 3 pack TOPICAL DAILY@0400 BRANDIE Stop: 03/25/18 03:59 Chlorhexidine Gluconate (Chlorhexidine 2% Cloth) 3 pack TOPICAL DAILY@0400 PRN PRN Reason: Extra cloth needed Stop: 03/25/18 03:59 Enoxaparin Sodium (Lovenox Inj) 40 mg SQ Q24H BRANDIE Lactulose (Lactulose Liq) 30 ml PO DAILY PRN PRN Reason: SEVERE CONSITIPATION Methylprednisolone Sodium Succinate (Solumedrol Inj) 60 mg IV.PUSH Q6H BRANDIE Ondansetron HCl (Zofran Inj) 4 mg IV.PUSH Q6H PRN PRN Reason: NAUSEA OR VOMITING Pantoprazole Sodium (Protonix) 40 mg PO DAILY BRANDIE Senna/Docusate Sodium (Leanne-Colace) 1 tab PO BID BRANDIE Sennosides (Senokot) 17.2 mg PO Q12H PRN PRN Reason: Moderate Constipation Sodium Chloride (Ns Flush) 2 ml IV.FLUSH BID BRANDIE Sodium Chloride (Ns Flush) 2 ml IV.FLUSH PRN PRN PRN Reason: FLUSH AFTER USING IV ACCESS Allergies Allergy/AdvReac Type Severity Reaction Status Date / Time No Known Allergies Allergy Unknown Uncoded 05/27/17 00:08 Home Medications Medication Instructions Recorded Confirmed Type alendronate 70 mg PO QWEEK 03/19/18 03/19/18 History alprazolam 0.25 mg PO BID 03/19/18 03/19/18 History budesonide-formoterol [Symbicort] 2 puff INHALATION BID 03/19/18 03/19/18 History guaifenesin 400 mg PO Q4H PRN 03/19/18 03/19/18 History ipratropium-albuterol 3 ml INHALATION QID 03/19/18 03/19/18 History ipratropium-albuterol [Combivent 1 puff INHALATION Q6H 03/19/18 03/19/18 History Respimat] lisinopril 10 mg PO DAILY 03/19/18 03/19/18 History omeprazole 40 mg PO DAILY 03/19/18 03/19/18 History pravastatin 10 mg PO DAILY 03/19/18 03/19/18 History simethicone 125 mg PO DAILY 03/19/18 03/19/18 History tamsulosin 0.4 mg PO DAILY 03/19/18 03/19/18 History Results - Labs CBC & Chem 7: 03/19/18 20:29 03/19/18 20:29 Labs: Short CBC 03/19/18 Range/Units 20:29 WBC 12.5 H (4.0-11.0) th/mm3 Hgb 12.9 L (13.0-17.0) gm/dL Hct 39.4 (39.0-51.0) % Plt Count 191 (150-450) th/mm3 BMP 03/19/18 20:29 Sodium 142 Potassium 4.1 Chloride 106 Carbon Dioxide 32.5 H BUN 21 H Creatinine 0.91 Calcium 9.0 Cardiac Enzymes 03/19/18 Range/Units 20:29 Total Creatine Kinase 117 (39-308) U/L CK-MB (CK-2) 2.5 (0.5-3.6) ng/mL Troponin I Less than 0.02 L (0.02-0.05) ng/mL Liver Function 03/19/18 Range/Units 20:29 Total Bilirubin 0.2 (0.2-1.0) mg/dL AST 20 (15-37) U/L ALT 22 (12-78) U/L Alkaline Phosphatase 61 (45-117) U/L Albumin 3.9 (3.4-5.0) g/dL - Imaging Impressions Chest X-Ray 03/19/18 19:04 CONCLUSION: Hyperinflated lungs. Mild suspected atelectasis or consolidation at the lateral right lung base. Exam Vital signs: Vital Signs 03/19/18 19:04 03/19/18 19:05 03/19/18 19:22 Temperature 101.8 F H Pulse Rate 140 H 128 H Respiratory Rate 23 Blood Pressure 152/96 H Pulse Oximetry 98 98 100 03/19/18 20:00 03/19/18 20:30 Temperature 103.1 F H Pulse Rate 119 H Respiratory Rate 30 H Blood Pressure 102/56 L Pulse Oximetry 100 99 Intake & Output 03/19/18 03/19/18 03/20/18 06:59 18:59 06:59 Intake Total 850 / 850 Balance 850 / 850 Intake: IV 850 / 850 Azithromycin Inj 500 MG In NS 250 / 250 Inj 250 ML @ 250 mls/hr IV.SIG ONCE ONE Rx#:[id number] NS Inj 500 ML @ Wide Open IV. 500 / 500 SIG BOLUS ONE Rx#:[id number] Rocephin Inj 1,000 MG In NS Inj 100 / 100 100 ML @ 200 mls/hr IV.SIG ONCE ONE Rx#:[id number] Narrative: GENERAL: Alert tachypneic, hard of hearing elderly gentleman who is pleasant and talkative. Bipap mask just removed. SKIN: Warm and dry. HEAD: Atraumatic. Normocephalic. EYES: Pupils equal and round, 3 mm reactive. No scleral icterus. No injection or drainage. ENT: No nasal bleeding or discharge. Mucous membranes dry, thrush on posterior oropharynx peer NECK: Trachea midline. No JVD. CARDIOVASCULAR: Tachycardic, sinus tach on monitor with rate of 110s with occasional PACs and PVCs.. No murmurs rubs or gallops. RESPIRATORY: Tachypneic but no accessory muscle use. Distant breath sounds bilaterally, slight expiratory wheeze. GASTROINTESTINAL: Abdomen soft, non-tender, nondistended. Bowel sounds present. MUSCULOSKELETAL: Extremities without clubbing, cyanosis, or edema. No obvious deformities. NEUROLOGICAL: Awake and alert. No obvious cranial nerve deficits, though he is hard of hearing. Motor grossly within normal limits, moving all extremities spontaneously. Normal speech Caprini VTE Risk Assessment Caprini VTE Risk Assessment: Moderate/High Risk (score >= 2) Caprini Risk Assessment Model: Point Value = 1 Point Value = 2 Point Value = 3 Point Value = 5 Age 41-60 Minor surgery BMI > 25 kg/m2 Swollen legs Varicose veins or History of unexplained or recurrent spontaneous Oral contraceptives or hormone replacement Sepsis (< 1 month) Serious lung disease, including pneumonia (< 1 month) Abnormal pulmonary function Acute myocardial infarction Congestive heart failure (< 1 month) History of inflammatory bowel disease Medical patient at bed rest Age 61-74 Arthroscopic surgery Major open surgery (> 45 min) Laparoscopic surgery (> 45 min) Malignancy Confined to bed (> 72 hours) Immobilizing plaster cast Central venous access Age >= 75 History of VTE Family history of VTE Factor V Leiden Prothrombin [id number] Lupus anticoagulant Anticardiolipin antibodies Elevated serum homocysteine Heparin-induced thrombocytopenia Other congenital or acquired thrombophilia Stroke (< 1 month) Elective arthroplasty Hip, pelvis, or leg fracture Acute spinal cord injury (< 1 month) Prophylaxis Regimen: Total Risk Factor Score Risk Level Prophylaxis Regimen 0-1 Low Early ambulation 2 Moderate Order ONE of the following: *Sequential Compression Device (SCD) *Heparin 5000 units SQ BID 3-4 Higher Order ONE of the following medications: *Heparin 5000 units SQ TID *Enoxaparin/Lovenox 40 mg SQ daily (WT < 150 kg, CrCl > 30 mL/min) *Enoxaparin/Lovenox 30 mg SQ daily (WT < 150 kg, CrCl > 10-29 mL/min) *Enoxaparin/Lovenox 30 mg SQ BID (WT < 150 kg, CrCl > 30 mL/min) AND/OR *Sequential Compression Device (SCD) 5 or more Highest Order ONE of the following medications: *Heparin 5000 units SQ TID (Preferred with Epidurals) *Enoxaparin/Lovenox 40 mg SQ daily (WT < 150 kg, CrCl > 30 mL/min) *Enoxaparin/Lovenox 30 mg SQ daily (WT < 150 kg, CrCl > 10-29 mL/min) *Enoxaparin/Lovenox 30 mg SQ BID (WT < 150 kg, CrCl > 30 mL/min) AND *Sequential Compression Device (SCD) Assessment and Plan - Problem List (1) CAP (community acquired pneumonia) Code(s): J18.9 - Pneumonia, unspecified organism Status: Acute (2) Acute exacerbation of chronic obstructive pulmonary disease (COPD) Code(s): J44.1 - Chronic obstructive pulmonary disease with (acute) exacerbation Status: Acute (3) Chronic respiratory failure with hypoxia, on home O2 therapy Code(s): J96.11 - Chronic respiratory failure with hypoxia; Z99.81 - Dependence on supplemental oxygen Status: Acute (4) HTN (hypertension) Code(s): I10 - Essential (primary) hypertension Status: Chronic (5) HLD (hyperlipidemia) Code(s): E78.5 - Hyperlipidemia, unspecified Status: Chronic (6) BPH (benign prostatic hyperplasia) Code(s): N40.0 - Benign prostatic hyperplasia without lower urinary tract symptoms Status: Chronic - Assessment and Plan Plan: NEURO/MSK: Chronic anxiety Continue Xanax 0.25 mill grams p.o. twice daily Osteoporosis Hold alendronate RESP: Acute community-acquired pneumonia Acute COPD exacerbation COPD with chronic hypoxic respiratory failure on 2 L home oxygen Hx tobacco abuse Bipap prn. DuoNeb every 4 hours. Albuterol every 2 hours as needed. Solu- Medrol 60 mg IV every 6 hours for now and then transition to prednisone. Continue Symbicort 160/4.5 2 puffs inhaled twice daily Continue guaifenesin 40 mg p.o. every 4 hours Antibiotics as per below He is known to Dr. Gaitan CV: Hypertension Hyperlipidemia Telemetry monitoring. Continue lisinopril 10 mg p.o. daily Continue pravastatin 10 mg p.o. daily Troponin is normal and he denies chest pain. GI: GERD Regular diet Continue PPI Continue simethicone FEN/RENAL: BPH Continue tamsulosin 0.4 mg p.o. daily Received 500 normal saline bolus in the emergency department. Lactic acid is normal. ID: Follow-up blood culture. Continue Rocephin and azithromycin for community- acquired pneumonia. His last hospitalization was in October 13 2017. At that time, sputum culture was positive for pseudomonas resistant to fluoroquinolone, but this may have been due to colonization because at that time he had no pneumonia on CT and no fever or leukocytosis. HEME: Monitor CBC ENDO: Euglycemic. Monitor glucose AC/at bedtime while on steroids and administer low- dose insulin sliding scale as needed. PROPH: SCDs/Lovenox 40 mg subcu daily for DVT prophylaxis. Protonix 40 mg p.o. daily for stress ulcer prophylaxis and history of GERD ACCESS: Peripheral IV providing adequate access at this time Full code Level 3 H&P
[2018-03-19] MEDS: Enoxaparin Inj 40 MG/0.4 ML Syringe SQ SCH (23:36)
[2018-03-19] MEDS: MethylPREDNISolone Sod Succinate Inj 125 MG/2 ML Vial IV.PUSH SCH (23:36)
[2018-03-20] MEDS: MethylPREDNISolone Sod Succinate Inj 125 MG/2 ML Vial IV.PUSH SCH ×4 (03:12→21:31)
[2018-03-20] MEDS: Chlorhexidine Gluconate 2% 1 Pack (2 Cloths) TOPICAL SCH (03:13)
[2018-03-20] MEDS ORDERED: Chlorhexidine Gluconate 2% 1 Pack (2 Cloths) TOPICAL PRN (04:00)
[2018-03-20] MEDS ORDERED: Dextrose 50% in Water 50 ML Vial IV.PUSH PRN (04:03)
[2018-03-20 06:15] LABS: Hematocrit 34.5 % (39.0-51.0); Hemoglobin 11.5 gm/dL (13.0-17.0); Mean Corpuscular HGB Conc 33.4 % (32.0-36.0); Mean Corpuscular Hemoglobin 33.2 pg (27.0-34.0); Mean Corpuscular Volume 99.3 fL (80.0-100.0); Mean Platelet Volume 7.7 fL (7.0-11.0); Platelet Count 175 th/mm3 (150-450); Red Blood Count 3.47 mil/mm3 (4.50-5.90); White Blood Count 13.5 th/mm3 (4.0-11.0)
[2018-03-20 06:42] LABS: Calcium 8.6 mg/dL (8.5-10.1); Carbon Dioxide 27.9 meq/L (21.0-32.0); Potassium 4.1 meq/L (3.5-5.1)
[2018-03-20 08:17] LABS: Lymphocytes 4 % (9-44)
[2018-03-20 08:18] LABS: Platelet Estimate Normal (Normal); Platelet Morphology Normal (Normal); RBC Morphology Normal (Normal)
[2018-03-20] MEDS: Senna/Docusate Sodium 8.6/50 MG Tablet PO SCH ×2 (09:00→20:30)
[2018-03-20] MEDS: ALPRAZolam 0.25 MG Tablet PO SCH ×2 (09:00→20:30)
[2018-03-20] MEDS: Lisinopril 10 MG Tablet PO SCH (09:00)
[2018-03-20] MEDS: Simethicone 125 MG Chew Tablet PO SCH (09:01)
[2018-03-20] MEDS: Nystatin Liq 500,000 UNIT/5 ML UDC SWISH-SWAL SCH ×4 (09:01→20:29)
[2018-03-20] MEDS: Budesonide-Formoterol 160/4.5 MCG 6 GM Inhaler INH SCH ×2 (09:01→20:30)
[2018-03-20] MEDS: Insulin NovoLOG Aspart Correctional Sugar Inj SQ SCH ×4 (11:19→20:29)
--- NOTE | 2018-03-20 13:22 | ECG ---
Date Performed: 03/19/2018 Time Performed: 19:55:39 PTAGE: 72 years EKG: SINUS TACHYCARDIA WITH OCCASIONAL VENTRICULAR PREMATURE COMPLEXES BORDERLINE LEFT AXIS MALISSA ATION LOW QRS VOLTAGE IN EXTREMITY LEADS ABNORMAL RHYTHM ECG Since the PREVIOUS TRACING , no significant change noted PREVIOUS TRACIN03/19/2018 19.07 DOCTOR: Charlotte Mcnair Interpretating Date/Time 03/20/2018 13:19:32
--- NOTE | 2018-03-20 14:06 | ECG ---
Date Performed: 03/19/2018 Time Performed: 19:07:38 PTAGE: 72 years EKG: SINUS TACHYCARDIA WITH OCCASIONAL VENTRICULAR PREMATURE COMPLEXES MARKED LEFT AXIS DEVIATIO N LOW QRS VOLTAGE IN EXTREMITY LEADS EKG is not really subject to interpretation because of gross art ifact and the above interpretation is my best estimate. Compared to previous tracing PVCs are new and there has been no change in the QRS complexes. There lateral ST segment depression is possibly incre ased. Repeat tracing is advised when patient is stable. ABNORMAL ECG PREVIOUS TRACING : 10/13/2017 07.43 DOCTOR: Charlotte Mcnair Interpretating Date/Time 03/20/2018 14:04:32
--- NOTE | 2018-03-20 16:25 | P.PNCC ---
Subjective Subjective Remarks/Hospital Course: 03/20: No acute events overnight. The patient is resting comfortably, continues on home O2 settings of 2 L/min. Patient continues on home medications. Hemodynamically stable. Objective Vital Signs / I&O: Vital Signs 03/19/18 19:04 03/19/18 19:05 03/19/18 19:10 Temperature 101.8 F H Pulse Rate 140 H 130 H Respiratory Rate 34 H Blood Pressure Pulse Oximetry 98 98 03/19/18 19:22 03/19/18 19:30 03/19/18 19:40 Temperature Pulse Rate 128 H 126 H 130 H Respiratory Rate 23 30 H 32 H Blood Pressure 152/96 H Pulse Oximetry 100 03/19/18 20:00 03/19/18 20:30 03/19/18 21:00 Temperature 103.1 F H Pulse Rate 119 H Respiratory Rate 30 H Blood Pressure 102/56 L Pulse Oximetry 100 99 98 03/19/18 23:00 03/19/18 23:20 03/19/18 23:34 Temperature 99.8 F H Pulse Rate 101 H 97 H 96 H Respiratory Rate 29 H 18 23 Blood Pressure 127/59 L 113/68 Pulse Oximetry 97 96 97 03/20/18 00:00 03/20/18 00:16 03/20/18 01:00 Temperature 98.6 F Pulse Rate 92 H 93 H 101 H Respiratory Rate 24 20 31 H Blood Pressure 120/63 120/57 L Pulse Oximetry 97 97 98 03/20/18 02:00 03/20/18 03:00 03/20/18 03:03 Temperature Pulse Rate 94 H 85 90 Respiratory Rate 32 H 31 H 32 H Blood Pressure 122/78 141/60 H 141/60 H Pulse Oximetry 98 98 99 03/20/18 04:00 03/20/18 04:01 03/20/18 04:36 Temperature 98.5 F Pulse Rate 83 84 78 Respiratory Rate 27 H 22 26 H Blood Pressure 137/58 L 137/58 L Pulse Oximetry 98 100 03/20/18 05:00 03/20/18 05:01 03/20/18 06:00 Temperature Pulse Rate 86 88 86 Respiratory Rate 37 H 34 H 40 H Blood Pressure 108/57 L 108/57 L 107/57 L Pulse Oximetry 100 100 97 03/20/18 07:00 03/20/18 08:00 03/20/18 08:38 Temperature 97.7 F Pulse Rate 75 83 84 Respiratory Rate 31 H 26 H 24 Blood Pressure 90/54 L 126/61 Pulse Oximetry 97 97 96 03/20/18 09:00 03/20/18 10:00 03/20/18 11:00 Temperature Pulse Rate 99 H 89 88 Respiratory Rate 21 20 37 H Blood Pressure 114/62 131/62 132/60 Pulse Oximetry 95 94 L 97 03/20/18 11:28 03/20/18 12:00 03/20/18 13:00 Temperature 97.7 F Pulse Rate 92 H 92 H 93 H Respiratory Rate 28 H 33 H 28 H Blood Pressure 117/58 L 116/59 L Pulse Oximetry 96 96 03/20/18 14:54 Temperature Pulse Rate 92 H Respiratory Rate 23 Blood Pressure Pulse Oximetry Intake & Output 03/19/18 03/20/18 03/20/18 18:59 06:59 18:59 Intake Total 850 / 850 100 / 100 Output Total 425 / 425 Balance 425 / 425 100 / 100 Weight 64.9 kg Intake: IV 850 / 850 100 / 100 Azithromycin Inj 500 MG In NS 250 / 250 Inj 250 ML @ 250 mls/hr IV.SIG ONCE ONE Rx#:[id number] NS Inj 500 ML @ Wide Open IV. 500 / 500 SIG BOLUS ONE Rx#:[id number] Rocephin Inj 1,000 MG In NS Inj 100 / 100 100 / 100 100 ML @ 200 mls/hr IV.SIG Q12H DANIEL Rx#:[id number] Oral 0 / 0 Output: Urine 125 / 125 Urine Amount (Catheter) 300 / 300 Straight 300 / 300 Other: # Bowel Movements 0 Weight On Admission 67.9 kg Result Diagrams: 03/20/18 05:26 03/20/18 05:26 Imaging: Laboratory Results WBC 13.5 th/mm3 (4.0-11.0) H 03/20/18 05:26 RBC 3.47 mil/mm3 (4.50-5.90) L 03/20/18 05:26 Hgb 11.5 gm/dL (13.0-17.0) L 03/20/18 05:26 Hct 34.5 % (39.0-51.0) L 03/20/18 05:26 MCV 99.3 fL (80.0-100.0) 03/20/18 05:26 MCH 33.2 pg (27.0-34.0) 03/20/18 05:26 MCHC 33.4 % (32.0-36.0) 03/20/18 05:26 RDW 13.0 % (11.6-17.2) 03/20/18 05:26 Plt Count 175 th/mm3 (150-450) 03/20/18 05:26 MPV 7.7 fL (7.0-11.0) 03/20/18 05:26 Prelim Diff (Auto) Manual diff required 03/20/18 05:26 Neut % (Auto) 75.8 % (16.0-70.0) H 03/19/18 20:29 Lymph % (Auto) 18.1 % (9.0-44.0) 03/19/18 20:29 [place] % (Auto) 4.9 % (0.0-8.0) 03/19/18 20: Eos % (Auto) 0.9 % (0.0-4.0) 03/19/18 20:29 Baso % (Auto) 0.3 % (0.0-2.0) 03/19/18 20:29 Neut # (Auto) 9.4 th/mm3 (1.8-7.7) H 03/19/18 20:29 Lymph # (Auto) 2.3 th/mm3 (1.0-4.8) 03/19/18 20:29 [place] # (Auto) 0.6 th/mm3 (0.0-0.9) 03/19/18 20:29 Eos # (Auto) 0.1 th/mm3 (0.0-0.4) 03/19/18 20:29 Baso # (Auto) 0.0 th/mm3 (0.0-0.2) 03/19/18 20:29 WBC Differential Manual diff final 03/20/18 05:26 Seg Neuts % (Manual) 81 % (16-70) H 03/20/18 05:26 Band Neuts % (Manual) 15 % (0-6) H 03/20/18 05:26 Lymphocytes % (Manual) 4 % (9-44) L 03/20/18 05:26 Abs Neuts (Manual) 13.0 th/mm3 (1.8-7.7) H 03/20/18 05:26 Differential Comment . 03/20/18 05:26 Platelet Estimate Normal (Normal) 03/20/18 05:26 Platelet Morphology Normal (Normal) 03/20/18 05:26 RBC Morphology Normal (Normal) 03/20/18 05:26 PT 10.5 sec (9.8-11.6) 03/19/18 20:39 INR 1.0 Ratio 03/19/18 20:39 APTT 22.0 sec (23.4-31.7) L 03/19/18 20:39 Puncture Site Right radial 03/19/18 20:30 Patient Temperature 98.6 03/19/18 20:30 O2 Saturation 98 % (90-100) 03/19/18 20:30 ABG pH 7.40 (7.380-7.420) 03/19/18 20:30 ABG pCO2 45 mmHg (38-42) H 03/19/18 20:30 ABG pO2 140 mmHg (61-120) H 03/19/18 20:30 ABG HCO3 27 mmol/L (22-26) H 03/19/18 20:30 ABG O2 Content 16.1 Vol % (12.0-20.0) 03/19/18 20:30 ABG Base Excess 2.3 mmol/L (-2-2) H 03/19/18 20:30 ABG Methemoglobin 0.7 % (0-2) 03/19/18 20:30 Be Test Present 03/19/18 20:30 Hemoglobin 11.6 G/DL (12.0-16.0) L 03/19/18 20:30 Carboxyhemoglobin 0.8 % (0-4) 03/19/18 20:30 O2 Delivery Device Bipap 03/19/18 20:30 Vent Setting Ipap=12 epap 6 03/19/18 20:30 Inspired O2 40 % 03/19/18 20:30 Critical Value No 03/19/18 20:30 Sodium 141 meq/L (136-145) 03/20/18 05:26 Potassium 4.1 meq/L (3.5-5.1) 03/20/18 05:26 Chloride 107 meq/L (98-107) 03/20/18 05:26 Carbon Dioxide 27.9 meq/L (21.0-32.0) 03/20/18 05:26 Anion Gap 6 meq/L (5-15) 03/20/18 05:26 BUN 19 mg/dL (7-18) H 03/20/18 05:26 Creatinine 0.94 mg/dL (0.60-1.30) 03/20/18 05:26 Estimated GFR 79 mL/min (>89) L 03/20/18 05:26 POC Glucose 212 mg/dl (68-110) H 03/20/18 16:06 Random Glucose 185 mg/dL (74-106) H 03/20/18 05:26 Lactic Acid 1.4 mmol/L (0.4-2.0) 03/19/18 20:29 Calcium 8.6 mg/dL (8.5-10.1) 03/20/18 05:26 Magnesium 1.7 mg/dL (1.5-2.5) 03/19/18 20:29 Total Bilirubin 0.2 mg/dL (0.2-1.0) 03/19/18 20:29 AST 20 U/L (15-37) 03/19/18 20:29 ALT 22 U/L (12-78) 03/19/18 20:29 Alkaline Phosphatase 61 U/L (45-117) 03/19/18 20:29 Total Creatine Kinase 117 U/L (39-308) 03/19/18 20:29 CK-MB (CK-2) 2.5 ng/mL (0.5-3.6) 03/19/18 20:29 Troponin I Less than 0.02 ng/mL (0.02-0.05) L 03/19/18 20:29 B-Natriuretic Peptide 55 pg/mL (0-100) 03/19/18 20:29 Total Protein 7.6 g/dL (6.4-8.2) 03/19/18 20:29 Albumin 3.9 g/dL (3.4-5.0) 03/19/18 20:29 Nasal Screen MRSA (PCR) Not detected (Negative) 03/19/18 22:48 Impressions Chest X-Ray 03/19/18 19:04 CONCLUSION: Hyperinflated lungs. Mild suspected atelectasis or consolidation at the lateral right lung base. Objective Remarks: GENERAL: This is a elderly well-developed well-nourished male sitting up in bed in no apparent distress SKIN: Warm and dry. HEAD: Atraumatic. Normocephalic. EYES: Pupils equal and round. No scleral icterus. No injection or drainage. ENT: No nasal bleeding or discharge. Mucous membranes pink and moist. NECK: Trachea midline. No JVD. CARDIOVASCULAR: Normal rate, regular rhythm. RESPIRATORY: No accessory muscle use. Clear to auscultation. Breath sounds equal bilaterally. GASTROINTESTINAL: Abdomen soft, non-tender, nondistended. No guarding. Normoactive bowel sounds MUSCULOSKELETAL: Extremities without clubbing, cyanosis, or edema. No obvious deformities. NEUROLOGICAL: Awake and alert. RASS 0. No gross focal/sensory deficits. Follows commands in all 4 extremities. Assessment and Plan - Problem List (1) CAP (community acquired pneumonia) Code(s): J18.9 - Pneumonia, unspecified organism Status: Acute (2) Acute exacerbation of chronic obstructive pulmonary disease (COPD) Code(s): J44.1 - Chronic obstructive pulmonary disease with (acute) exacerbation Status: Acute (3) Chronic respiratory failure with hypoxia, on home O2 therapy Code(s): J96.11 - Chronic respiratory failure with hypoxia; Z99.81 - Dependence on supplemental oxygen Status: Acute (4) HTN (hypertension) Code(s): I10 - Essential (primary) hypertension Status: Chronic (5) HLD (hyperlipidemia) Code(s): E78.5 - Hyperlipidemia, unspecified Status: Chronic (6) BPH (benign prostatic hyperplasia) Code(s): N40.0 - Benign prostatic hyperplasia without lower urinary tract symptoms Status: Chronic - Assessment and Plan Plan: NEURO/MSK: Chronic anxiety Continue Xanax 0.25 mill grams p.o. twice daily Osteoporosis Hold alendronate RESP: Acute community-acquired pneumonia Acute COPD exacerbation COPD with chronic hypoxic respiratory failure on 2 L home oxygen Hx tobacco abuse Bipap prn. DuoNeb every 4 hours. Albuterol every 2 hours as needed. Solu- Medrol 60 mg IV every 6 hours for now and then transition to prednisone. Continue Symbicort 160/4.5 2 puffs inhaled twice daily Continue guaifenesin 40 mg p.o. every 4 hours Antibiotics as per below Dr. Gaitan-consult CV: Hypertension Hyperlipidemia Telemetry monitoring. Continue lisinopril 10 mg p.o. daily Continue pravastatin 10 mg p.o. daily Troponin is normal and he denies chest pain. GI: GERD Regular diet Continue PPI Continue simethicone FEN/RENAL: BPH Urinary retention Continue tamsulosin 0.4 mg p.o. daily Received 500 normal saline bolus in the emergency department. Lactic acid is normal. Continue to bladder scan every 6 hoursnoted 900 cc on last bladder scan and straight cath ID: Follow-up blood culture. Continue Rocephin and azithromycin for community- acquired pneumonia. His last hospitalization was in October 13 2017. At that time, sputum culture was positive for pseudomonas resistant to fluoroquinolone, but this may have been due to colonization because at that time he had no pneumonia on CT and no fever or leukocytosis. HEME: Monitor CBC ENDO: Euglycemic. Monitor glucose AC/at bedtime while on steroids and administer low- dose insulin sliding scale as needed. PROPH: SCDs/Lovenox 40 mg subcu daily for DVT prophylaxis. Protonix 40 mg p.o. daily for stress ulcer prophylaxis and history of GERD ACCESS: Peripheral IV providing adequate access at this time Full code Level 3 H&P
[2018-03-20] MEDS: Azithromycin 250 MG Tablet PO SCH (20:30)
[2018-03-20] MEDS: Enoxaparin Inj 40 MG/0.4 ML Syringe SQ SCH (21:30)
[2018-03-21] MEDS: MethylPREDNISolone Sod Succinate Inj 125 MG/2 ML Vial IV.PUSH SCH ×2 (04:12→20:54)
[2018-03-21] MEDS: Chlorhexidine Gluconate 2% 1 Pack (2 Cloths) TOPICAL SCH (04:13)
[2018-03-21 08:29] LABS: Hematocrit 32.6 % (39.0-51.0); Hemoglobin 11.2 gm/dL (13.0-17.0); Lymph # (Auto) 0.6 th/mm3 (1.0-4.8); Lymph % (Auto) 4.5 % (9.0-44.0); Mean Corpuscular HGB Conc 34.2 % (32.0-36.0); Mean Corpuscular Hemoglobin 33.6 pg (27.0-34.0); Mean Corpuscular Volume 98.1 fL (80.0-100.0); Mean Platelet Volume 7.8 fL (7.0-11.0); Mono # (Auto) 0.4 th/mm3 (0.0-0.9); Mono % (Auto) 2.8 % (0.0-8.0); Neut # (Auto) 12.6 th/mm3 (1.8-7.7); Neut % (Auto) 92.7 % (16.0-70.0); Platelet Count 161 th/mm3 (150-450); Red Blood Count 3.32 mil/mm3 (4.50-5.90); Red Cell Distribution Width 13.1 % (11.6-17.2); White Blood Count 13.6 th/mm3 (4.0-11.0)
[2018-03-21] MEDS: Simethicone 125 MG Chew Tablet PO SCH (08:40)
[2018-03-21] MEDS: Budesonide-Formoterol 160/4.5 MCG 6 GM Inhaler INH SCH ×2 (08:40→20:49)
[2018-03-21] MEDS: Nystatin Liq 500,000 UNIT/5 ML UDC SWISH-SWAL SCH ×4 (08:40→20:48)
[2018-03-21] MEDS: Insulin NovoLOG Aspart Correctional Sugar Inj SQ SCH ×4 (08:40→20:53)
[2018-03-21] MEDS: ALPRAZolam 0.25 MG Tablet PO SCH ×2 (08:40→20:48)
[2018-03-21] MEDS: Senna/Docusate Sodium 8.6/50 MG Tablet PO SCH ×2 (08:40→20:49)
[2018-03-21] MEDS: Lisinopril 10 MG Tablet PO SCH (08:40)
[2018-03-21 08:46] LABS: Anion Gap 7 meq/L (5-15); Blood Urea Nitrogen 23 mg/dL (7-18); Calcium 8.5 mg/dL (8.5-10.1); Carbon Dioxide 28.2 meq/L (21.0-32.0); Chloride 109 meq/L (98-107); Glomerular Filtration Rate Greater Than 89 mL/min (>89); Glucose,Random 171 mg/dL (74-106); Magnesium 2.1 mg/dL (1.5-2.5); Phosphorus 2.1 mg/dL (2.5-4.9); Potassium 3.9 meq/L (3.5-5.1); Sodium 144 meq/L (136-145)
--- NOTE | 2018-03-21 13:16 | P.PNIM ---
Subjective Interval history: Patient complains of some shortness of breath overnight. Currently he is comfortable on 2 L of supplemental oxygen. Physical Exam Vital signs: Vital Signs 03/20/18 14:00 03/20/18 14:54 03/20/18 15:00 Temperature Pulse Rate 96 H 92 H 91 H Respiratory Rate 40 H 23 43 H Blood Pressure 108/58 L 96/55 L Pulse Oximetry 93 L 95 03/20/18 16:00 03/20/18 17:00 03/20/18 18:00 Temperature 98.1 F Pulse Rate 92 H 106 H 104 H Respiratory Rate 33 H 27 H 29 H Blood Pressure 113/59 L 108/52 L 107/62 Pulse Oximetry 96 94 L 94 L 03/20/18 19:00 03/20/18 20:00 03/20/18 21:00 Temperature 98.3 F Pulse Rate 104 H 93 H 91 H Respiratory Rate 27 H 31 H 27 H Blood Pressure 116/57 L 120/67 108/58 L Pulse Oximetry 95 96 95 03/20/18 21:33 03/20/18 22:00 03/20/18 23:00 Temperature Pulse Rate 91 H 93 H 95 H Respiratory Rate 18 30 H 45 H Blood Pressure 116/58 L 94/51 L Pulse Oximetry 95 94 L 95 03/21/18 00:00 03/21/18 01:00 03/21/18 02:00 Temperature 98.3 F Pulse Rate 94 H 92 H 84 Respiratory Rate 43 H 43 H 41 H Blood Pressure 101/56 L 95/53 L 97/53 L Pulse Oximetry 97 98 95 03/21/18 03:00 03/21/18 04:00 03/21/18 04:25 Temperature 97.8 F Pulse Rate 80 84 85 Respiratory Rate 25 H 21 22 Blood Pressure 86/49 L 98/49 L Pulse Oximetry 96 99 03/21/18 05:00 03/21/18 05:01 03/21/18 05:02 Temperature Pulse Rate 80 80 80 Respiratory Rate 21 21 21 Blood Pressure 80/43 L 79/43 L Pulse Oximetry 98 98 99 03/21/18 05:05 03/21/18 06:00 03/21/18 07:00 Temperature Pulse Rate 88 83 100 H Respiratory Rate 21 20 18 Blood Pressure 86/49 L 105/59 L 107/56 L Pulse Oximetry 99 97 97 03/21/18 08:00 03/21/18 11:00 Temperature 97.8 F Pulse Rate 88 94 H Respiratory Rate 24 18 Blood Pressure 133/67 Pulse Oximetry 95 Intake & Output 03/20/18 03/21/18 03/21/18 18:59 06:59 18:59 Intake Total 820 / 820 460 / 460 Output Total 900 / 900 350 / 350 Balance -80 / -80 110 / 110 Weight 64.9 kg Intake: IV 100 / 100 100 / 100 Rocephin Inj 1,000 MG In NS Inj 100 / 100 100 / 100 100 ML @ 200 mls/hr IV.SIG Q12H [facility] Rx#:[id number] Oral 720 / 720 360 / 360 Output: Urine 350 / 350 Stool 0 / 0 0 / 0 Urine Amount (Catheter) 900 / 900 Straight 900 / 900 Other: # Voids 2 # Bowel Movements 0 Narrative: General patient complains of some shortness of breath. Says he is starting to feel better. HEENT extraocular movements are intact, clear oropharyngeal mucosa, no JVD Cardiovascular S1-S2 audible, RRR, no murmurs rubs or gallops Respiratory bilateral wheezing on auscultation. Abdomen soft, nontender, nondistended, normal bowel sounds Extremities no edema 2+ distal pulses in bilateral upper and lower extremities Neuro cranial nerves II through XII intact - Urinary Catheter Management Straight Cath placed during this visit: yes, but has since been removed by the nurse Reason for continuing: Not indwelling catheter Insertion date: 03/20/18 Insertion time: 13:15 Removal date: 03/20/18 Removal time: 01:30 Results - Labs CBC & Chem 7: 03/21/18 07:29 03/21/18 07:29 Laboratory Results - last 24 hr 03/20/18 03/20/18 03/21/18 16:06 20:24 07:29 WBC 13.6 H RBC 3.32 L Hgb 11.2 L Hct 32.6 L MCV 98.1 MCH 33.6 MCHC 34.2 RDW 13.1 Plt Count 161 MPV 7.8 Neut % (Auto) 92.7 H Lymph % (Auto) 4.5 L [place] % (Auto) 2.8 Eos % (Auto) 0.0 Baso % (Auto) 0.0 Neut # (Auto) 12.6 H Lymph # (Auto) 0.6 L [place] # (Auto) 0.4 Eos # (Auto) 0.0 Baso # (Auto) 0.0 WBC Differential . Differential Comment Auto diff final Sodium Potassium Chloride Carbon Dioxide Anion Gap BUN Creatinine Estimated GFR POC Glucose 212 H 172 H Random Glucose Calcium Phosphorus Magnesium 03/21/18 03/21/18 07:29 08:07 WBC RBC Hgb Hct MCV MCH MCHC RDW Plt Count MPV Neut % (Auto) Lymph % (Auto) [place] % (Auto) Eos % (Auto) Baso % (Auto) Neut # (Auto) Lymph # (Auto) [place] # (Auto) Eos # (Auto) Baso # (Auto) WBC Differential Differential Comment Sodium 144 Potassium 3.9 Chloride 109 H Carbon Dioxide 28.2 Anion Gap 7 BUN 23 H Creatinine 0.82 Estimated GFR Greater than 89 POC Glucose 166 H Random Glucose 171 H Calcium 8.5 Phosphorus 2.1 L Magnesium 2.1 Microbiology 03/19/18 20:29 Blood - Peripheral Aerobic Blood Culture - Preliminary No growth in 2 days 03/19/18 20:29 Blood - Peripheral Anaerobic Blood Culture - Preliminary No growth in 2 days 03/19/18 20:19 Blood - Peripheral Aerobic Blood Culture - Preliminary No growth in 2 days 03/19/18 20:19 Blood - Peripheral Anaerobic Blood Culture - Preliminary No growth in 2 days Assessment and Plan - Plan This patient is a 72-year-old male with a diagnosis of COPD on 2 L of home O2, hypertension, dyslipidemic, BPH, gastroesophageal reflux disease, anxiety. The patient presented to our facility with complaints of shortness of breath, and a cough. He was also having sputum production as well as a fever. Chest x-ray showed a right lower lobe infiltrate and a slightly elevated WBC count. 1. Acute hypoxic hypercapnic restaurant failure secondary to COPD exacerbation. 2. Severe sepsis secondary to right lower lobe community-acquired pneumonia present on admission The patient was initially admitted to the intensive care unit. He was found to be tachycardic, elevated WBC count, hypoxic and hypercapnic. Initially there was a concern that the patient may need to be intubated. He was started on IV steroids and IV antibiotics. Breathing treatments were continued around the clock. Patient still has some wheezing on auscultation bilaterally. The patient was given supplemental oxygen, he uses 2 L of baseline home O2. Patient symptoms have improved and he has now been transferred to the hospitalist service. Continue antibiotics. IV steroids will be changed to p.o. steroids. We will continue with supportive care. Blood cultures are negative. Influenza negative 3. Hypertension/dyslipidemia Continue lisinopril, continue statin. 4. Gastroesophageal reflux disease Continue PPI 5. BPH Continue Flomax.
[2018-03-21] MEDS: predniSONE 20 MG Tablet PO SCH (14:54)
[2018-03-21] MEDS ORDERED: ALPRAZolam 0.25 MG Tablet PO ONE (17:00)
--- NOTE | 2018-03-21 18:47 | XR ---
EXAM DATE: 03/21/2018 6:35 PM EST AGE/SEX: 72 years / Male INDICATIONS: COPD. CLINICAL DATA: This is the patient's subsequent encounter. Patient reports that signs and symptoms h ave been present for 3 days and indicates a pain score of 0/10. MEDICAL/SURGICAL HISTORY: Chronic obstructive pulmonary disease. None. COMPARISON: [facility] [place], CT PULMONARY ANGIOGRAM, 10/13/2017. [facility] [place], CHEST 1V SINGLE AP, 03/19/2018. . FINDINGS: A single AP view of the chest demonstrates the lungs to be symmetrically aerated without evidence of mass, infiltrate or effusion. Hyperexpansion again noted. The cardiomediastinal contours are unremar kable. Osseous structures are intact. CONCLUSION: No acute cardiopulmonary disease demonstrated. Lungs are hyperexpanded but appear clear. Electronically signed by: Shad Grissom MD 03/21/2018 6:45 PM EST
[2018-03-21] MEDS: Azithromycin 250 MG Tablet PO SCH (20:48)
[2018-03-21] MEDS: Enoxaparin Inj 40 MG/0.4 ML Syringe SQ SCH (21:47)
[2018-03-22] MEDS: Chlorhexidine Gluconate 2% 1 Pack (2 Cloths) TOPICAL SCH (04:12)
[2018-03-22] MEDS: predniSONE 20 MG Tablet PO SCH (09:09)
[2018-03-22] MEDS: Simethicone 125 MG Chew Tablet PO SCH (09:09)
[2018-03-22] MEDS: Lisinopril 10 MG Tablet PO SCH (09:09)
[2018-03-22] MEDS: Nystatin Liq 500,000 UNIT/5 ML UDC SWISH-SWAL SCH ×4 (09:10→21:12)
[2018-03-22] MEDS: ALPRAZolam 0.25 MG Tablet PO SCH ×2 (09:11→21:11)
[2018-03-22] MEDS: Senna/Docusate Sodium 8.6/50 MG Tablet PO SCH ×2 (09:12→21:12)
[2018-03-22] MEDS: Budesonide-Formoterol 160/4.5 MCG 6 GM Inhaler INH SCH ×2 (09:12→21:12)
[2018-03-22] MEDS: Insulin NovoLOG Aspart Correctional Sugar Inj SQ SCH (09:42)
--- NOTE | 2018-03-22 10:15 | P.PN ---
Subjective Interval history: ALERT LESS SOB Physical Exam Vital signs: Vital Signs 03/21/18 11:00 03/21/18 12:00 03/21/18 13:00 Temperature 98.1 F Pulse Rate 99 H 88 89 Respiratory Rate 30 H 41 H 22 Blood Pressure 135/69 98/53 L 108/59 L Pulse Oximetry 98 95 95 03/21/18 14:00 03/21/18 15:00 03/21/18 16:00 Temperature 98.3 F Pulse Rate 102 H 99 H 93 H Respiratory Rate 26 H 32 H 34 H Blood Pressure 120/56 L 114/59 L 135/67 Pulse Oximetry 93 L 98 97 03/21/18 17:00 03/21/18 18:00 03/21/18 18:26 Temperature Pulse Rate 101 H 100 H 99 H Respiratory Rate 20 45 H 29 H Blood Pressure 127/64 Pulse Oximetry 96 94 L 94 L 03/21/18 19:00 03/21/18 20:00 03/21/18 20:20 Temperature 98.1 F Pulse Rate 94 H 92 H 92 H Respiratory Rate 27 H 16 16 Blood Pressure 107/57 L 110/68 Pulse Oximetry 95 94 L 96 03/21/18 21:00 03/21/18 22:00 03/22/18 00:00 Temperature 97.4 F L Pulse Rate 98 H 93 H 78 Respiratory Rate 22 27 H 20 Blood Pressure 130/73 128/60 141/66 H Pulse Oximetry 93 L 94 L 96 03/22/18 04:00 03/22/18 07:53 03/22/18 08:00 Temperature 97.7 F 97.4 F L Pulse Rate 78 88 97 H Respiratory Rate 20 16 20 Blood Pressure 147/70 H 169/84 H Pulse Oximetry 97 98 91 L Intake & Output 03/21/18 03/22/18 03/22/18 18:59 06:59 18:59 Intake Total 100 / 100 340 / 340 100 / 100 Output Total 450 / 450 225 / 225 Balance -350 / -350 115 / 115 100 / 100 Weight 65.9 kg Intake: IV 100 / 100 100 / 100 100 / 100 Rocephin Inj 1,000 MG In NS Inj 100 / 100 100 / 100 100 / 100 100 ML @ 200 mls/hr IV.SIG Q12H [facility] Rx#:[id number] Oral 240 / 240 Output: Urine 450 / 450 225 / 225 Other: # Bowel Movements 0 Narrative: General patient complains of some shortness of breath. Says he is starting to feel better. HEENT extraocular movements are intact, clear oropharyngeal mucosa, no JVD Cardiovascular S1-S2 audible, RRR, no murmurs rubs or gallops Respiratory bilateral wheezing on auscultation. Abdomen soft, nontender, nondistended, normal bowel sounds Extremities no edema 2+ distal pulses in bilateral upper and lower extremities Neuro cranial nerves II through XII intact - Urinary Catheter Management Straight Cath placed during this visit: yes, but has since been removed by the nurse Reason for continuing: Not indwelling catheter Insertion date: 03/20/18 Insertion time: 13:15 Removal date: 03/20/18 Removal time: 01:30 Results - Labs CBC & Chem 7: 03/21/18 07:29 03/21/18 07:29 Laboratory Results - last 24 hr 03/21/18 03/21/18 13:15 20:50 POC Glucose 150 H 134 H Microbiology 03/19/18 20:29 Blood - Peripheral Aerobic Blood Culture - Preliminary No growth in 2 days 03/19/18 20:29 Blood - Peripheral Anaerobic Blood Culture - Preliminary No growth in 2 days 03/19/18 20:19 Blood - Peripheral Aerobic Blood Culture - Preliminary No growth in 2 days 03/19/18 20:19 Blood - Peripheral Anaerobic Blood Culture - Preliminary No growth in 2 days - Imaging Impressions Chest X-Ray 03/21/18 18:23 CONCLUSION: No acute cardiopulmonary disease demonstrated. Lungs are hyperexpanded but appear clear. Assessment and Plan - Plan RESPIRATORY FAILURE PNA COPD EXACERBATION PLAN O2 ANTIBX BRONCHODILATORS INCREASE ACTIVITY
--- NOTE | 2018-03-22 16:48 | P.PNIM ---
Subjective Interval history: This patient is a 72-year-old male with a diagnosis of COPD on 2 L of home O2, hypertension, dyslipidemic, BPH, gastroesophageal reflux disease, anxiety; admitted for COPD exacerbation. Today feels better, about 60% of his normal. Still occasionally wheezing. Coughing up some sputum of varied color ( brown / green / yellow). No CP. Physical Exam Vital signs: Vital Signs 03/21/18 17:00 03/21/18 18:00 03/21/18 18:26 Temperature Pulse Rate 101 H 100 H 99 H Respiratory Rate 20 45 H 29 H Blood Pressure 127/64 Pulse Oximetry 96 94 L 94 L 03/21/18 19:00 03/21/18 20:00 03/21/18 20:20 Temperature 98.1 F Pulse Rate 94 H 92 H 92 H Respiratory Rate 27 H 16 16 Blood Pressure 107/57 L 110/68 Pulse Oximetry 95 94 L 96 03/21/18 21:00 03/21/18 22:00 03/22/18 00:00 Temperature 97.4 F L Pulse Rate 98 H 93 H 78 Respiratory Rate 22 27 H 20 Blood Pressure 130/73 128/60 141/66 H Pulse Oximetry 93 L 94 L 96 03/22/18 04:00 03/22/18 07:53 03/22/18 08:00 Temperature 97.7 F 97.4 F L Pulse Rate 78 88 83 Respiratory Rate 20 16 20 Blood Pressure 147/70 H 169/84 H Pulse Oximetry 97 98 91 L 03/22/18 11:45 03/22/18 12:00 03/22/18 15:19 Temperature 97.7 F Pulse Rate 82 93 H 99 H Respiratory Rate 16 20 18 Blood Pressure 152/70 H Pulse Oximetry 95 Intake & Output 03/21/18 03/22/18 03/22/18 18:59 06:59 18:59 Intake Total 100 / 100 340 / 340 100 / 100 Output Total 450 / 450 225 / 225 Balance -350 / -350 115 / 115 100 / 100 Weight 65.9 kg Intake: IV 100 / 100 100 / 100 100 / 100 Rocephin Inj 1,000 MG In NS Inj 100 / 100 100 / 100 100 / 100 100 ML @ 200 mls/hr IV.SIG Q12H [facility] Rx#:[id number] Oral 240 / 240 Output: Urine 450 / 450 225 / 225 Other: # Bowel Movements 0 - Constitutional no acute distress, average body habitus - Routine HEENT Exam Head: Present: normocephalic, atraumatic - Routine Neck Exam Present: supple - Routine Respiratory Exam Present: decreased breath sounds, wheezes (faint end expiratory), diminished air movement. Absent: accessory muscle use, crackles - Routine Cardiovascular Exam Present: RRR, S1, S2. Absent: murmur - Routine Abdominal Exam Present: soft. Absent: tenderness, distended - Routine Extremities Exam Absent: cyanosis, edema - Routine Neurological Exam Present: alert - Urinary Catheter Management Straight Cath placed during this visit: yes, but has since been removed by the nurse Reason for continuing: Not indwelling catheter Insertion date: 03/20/18 Insertion time: 13:15 Removal date: 03/20/18 Removal time: 01:30 Results - Labs CBC & Chem 7: 03/21/18 07:29 03/21/18 07:29 Laboratory Results - last 24 hr 03/21/18 20:50 POC Glucose 134 H Microbiology 03/19/18 20:29 Blood - Peripheral Aerobic Blood Culture - Preliminary No growth in 3 days 03/19/18 20:29 Blood - Peripheral Anaerobic Blood Culture - Preliminary No growth in 3 days 03/19/18 20:19 Blood - Peripheral Aerobic Blood Culture - Preliminary No growth in 3 days 03/19/18 20:19 Blood - Peripheral Anaerobic Blood Culture - Preliminary No growth in 3 days - Imaging Impressions Chest X-Ray 03/21/18 18:23 CONCLUSION: No acute cardiopulmonary disease demonstrated. Lungs are hyperexpanded but appear clear. Assessment and Plan - Plan 1. Acute hypoxic hypercapnic restaurant failure secondary to COPD exacerbation - resolved 2. Severe sepsis secondary to right lower lobe community-acquired pneumonia present on admission - resolved The patient was initially admitted to the intensive care unit. Initially there was a concern that the patient may need to be intubated, however he did well with BiPAP and subsequently improved. He was started on IV steroids and IV antibiotics. Breathing treatments were continued around the clock. Patient still has some wheezing on auscultation bilaterally. The patient was given supplemental oxygen, he uses 2 L of baseline home O2. Patient symptoms have improved and he has now been transferred to the hospitalist service. Blood cultures are negative Influenza negative Continue rocephin/azithromycin Continue PO steroid Bronchodilators Increase activity Pulmonology consulted, recs appreciated - agree with above 3. Hypertension/dyslipidemia Continue lisinopril, continue statin. 4. Gastroesophageal reflux disease Continue PPI 5. BPH Continue Flomax. Discharge Planning: Home pending clinical improvement
[2018-03-22] MEDS: Azithromycin 250 MG Tablet PO SCH (21:11)
[2018-03-22] MEDS: Enoxaparin Inj 40 MG/0.4 ML Syringe SQ SCH (21:12)
[2018-03-23] MEDS: Simethicone 125 MG Chew Tablet PO SCH (08:12)
[2018-03-23] MEDS: predniSONE 20 MG Tablet PO SCH (08:12)
[2018-03-23] MEDS: Senna/Docusate Sodium 8.6/50 MG Tablet PO SCH ×2 (08:12→21:07)
[2018-03-23] MEDS: Lisinopril 10 MG Tablet PO SCH (08:12)
[2018-03-23] MEDS: ALPRAZolam 0.25 MG Tablet PO SCH ×2 (08:12→21:07)
[2018-03-23] MEDS: Nystatin Liq 500,000 UNIT/5 ML UDC SWISH-SWAL SCH ×4 (08:12→21:07)
[2018-03-23] MEDS: Budesonide-Formoterol 160/4.5 MCG 6 GM Inhaler INH SCH ×2 (08:13→21:08)
[2018-03-23] MEDS: Chlorhexidine Gluconate 2% 1 Pack (2 Cloths) TOPICAL SCH (08:20)
[2018-03-23 08:29] LABS: Baso % (Auto) 0.1 % (0.0-2.0); Eos % (Auto) 0.1 % (0.0-4.0); Hematocrit 33.5 % (39.0-51.0); Hemoglobin 11.3 gm/dL (13.0-17.0); Lymph # (Auto) 1.8 th/mm3 (1.0-4.8); Lymph % (Auto) 21.5 % (9.0-44.0); Mean Corpuscular HGB Conc 33.7 % (32.0-36.0); Mean Corpuscular Hemoglobin 33.3 pg (27.0-34.0); Mean Corpuscular Volume 98.8 fL (80.0-100.0); Mean Platelet Volume 7.6 fL (7.0-11.0); Mono # (Auto) 0.6 th/mm3 (0.0-0.9); Mono % (Auto) 7.5 % (0.0-8.0); Neut # (Auto) 6.1 th/mm3 (1.8-7.7); Neut % (Auto) 70.8 % (16.0-70.0); Platelet Count 165 th/mm3 (150-450); Red Blood Count 3.39 mil/mm3 (4.50-5.90); Red Cell Distribution Width 13.4 % (11.6-17.2); White Blood Count 8.6 th/mm3 (4.0-11.0)
--- NOTE | 2018-03-23 09:38 | P.PN ---
Subjective Interval history: This is a pleasant 72 y/o Male with COPD, on 2 L/min NC of Oxygen at home, hypertension, dyslipidemic, BPH, GERD, Anxiety, admitted due to COPD exacerbation. 03/23: Stable in his bedroom, no nausea, vomit or diarrhea, continue with Expiratory wheezing, walking with some Dyspnea. Physical Exam Vital signs: Vital Signs 03/22/18 11:45 03/22/18 12:00 03/22/18 15:19 Temperature 97.7 F Pulse Rate 82 93 H 99 H Respiratory Rate 16 20 18 Blood Pressure 152/70 H Pulse Oximetry 95 03/22/18 16:00 03/22/18 20:00 03/22/18 20:10 Temperature 98.0 F 98.2 F Pulse Rate 90 82 80 Respiratory Rate 18 18 17 Blood Pressure 132/67 164/79 H Pulse Oximetry 97 97 03/22/18 23:59 03/23/18 00:00 03/23/18 04:00 Temperature 98.4 F 97.9 F Pulse Rate 85 78 76 Respiratory Rate 16 18 17 Blood Pressure 133/63 148/71 H Pulse Oximetry 98 97 97 03/23/18 04:03 03/23/18 08:00 03/23/18 08:44 Temperature 97.4 F L Pulse Rate 83 84 65 Respiratory Rate 16 16 20 Blood Pressure 151/79 H Pulse Oximetry 96 97 Intake & Output 03/22/18 03/23/18 03/23/18 18:59 06:59 18:59 Intake Total 700 / 700 250 / 250 Output Total 600 / 600 375 / 375 Balance 100 / 100 -125 / -125 Weight 66.4 kg Intake: IV 100 / 100 100 / 100 Rocephin Inj 1,000 MG In NS Inj 100 / 100 100 / 100 100 ML @ 200 mls/hr IV.SIG Q12H [facility] Rx#:[id number] Oral 600 / 600 150 / 150 Output: Urine 600 / 600 375 / 375 Other: Date of Last Bowel Movement 03/22/18 03/22/18 # Bowel Movements 1 Narrative: GENERAL: Well-developed patient, in no apparent distress. CARDIOVASCULAR: Regular rate and rhythm without murmurs, gallops, or rubs. RESPIRATORY: Decreased breath sounds bilateral, Wheezing present, crackles. GASTROINTESTINAL: Abdomen soft, non-tender, nondistended. Normal active bowel sounds MUSCULOSKELETAL: Extremities without clubbing, cyanosis, or edema. NEURO: Alert & Oriented x4 to person, place, time, situation. Moves all ext x4 - Urinary Catheter Management Straight Cath placed during this visit: yes, but has since been removed by the nurse Reason for continuing: Not indwelling catheter Insertion date: 03/20/18 Insertion time: 13:15 Removal date: 03/20/18 Removal time: 01:30 Results - Labs CBC & Chem 7: 03/23/18 06:44 03/21/18 07:29 Laboratory Results - last 24 hr 03/23/18 06:44 WBC 8.6 RBC 3.39 L Hgb 11.3 L Hct 33.5 L MCV 98.8 MCH 33.3 MCHC 33.7 RDW 13.4 Plt Count 165 MPV 7.6 Neut % (Auto) 70.8 H Lymph % (Auto) 21.5 [place] % (Auto) 7.5 Eos % (Auto) 0.1 Baso % (Auto) 0.1 Neut # (Auto) 6.1 Lymph # (Auto) 1.8 [place] # (Auto) 0.6 Eos # (Auto) 0.0 Baso # (Auto) 0.0 WBC Differential . Differential Comment Auto diff final Microbiology 03/19/18 20:29 Blood - Peripheral Aerobic Blood Culture - Preliminary No growth in 3 days 03/19/18 20:29 Blood - Peripheral Anaerobic Blood Culture - Preliminary No growth in 3 days 03/19/18 20:19 Blood - Peripheral Aerobic Blood Culture - Preliminary No growth in 3 days 03/19/18 20:19 Blood - Peripheral Anaerobic Blood Culture - Preliminary No growth in 3 days - Imaging Chest X-Ray 03/21/18 18:23 CONCLUSION: No acute cardiopulmonary disease demonstrated. Lungs are hyperexpanded but appear clear. - Procedures None Assessment and Plan - Plan 1. Acute hypoxic hypercapnic restaurant failure secondary to COPD exacerbation - resolved 2. Severe sepsis secondary to right lower lobe community-acquired pneumonia present on admission - resolved The patient was initially admitted to the intensive care unit. Initially there was a concern that the patient may need to be intubated, however he did well with BiPAP and subsequently improved. He was started on IV steroids and IV antibiotics. Breathing treatments were continued around the clock. Patient still has some wheezing on auscultation bilaterally. The patient was given supplemental oxygen, he uses 2 L of baseline home O2. Patient symptoms have improved and he has now been transferred to the hospitalist service. Blood cultures are negative Influenza negative Continue rocephin/azithromycin Continue PO steroid Bronchodilators Increase activity Pulmonology consulted, recs appreciated - agree with above 3. Hypertension/dyslipidemia Mild uncontrol continue Home medicines. Continue lisinopril, continue statin. 4. Gastroesophageal reflux disease Continue PPI 5. BPH Continue Flomax. DVT prophylaxis with Lovenox Code Status: Full code. Discussed Condition With: Patient and Nurse Miss Hua. Discharge Planning: Once cleared by solutions specialist.
--- NOTE | 2018-03-23 17:17 | P.PN ---
Subjective Interval history: ALERT NAD AMBULATING Physical Exam Vital signs: Vital Signs 03/22/18 20:00 03/22/18 20:10 03/22/18 23:59 Temperature 98.2 F Pulse Rate 82 80 85 Respiratory Rate 18 17 16 Blood Pressure 164/79 H Pulse Oximetry 97 98 03/23/18 00:00 03/23/18 04:00 03/23/18 04:03 Temperature 98.4 F 97.9 F Pulse Rate 78 76 83 Respiratory Rate 18 17 16 Blood Pressure 133/63 148/71 H Pulse Oximetry 97 97 03/23/18 08:00 03/23/18 08:44 03/23/18 12:00 Temperature 97.4 F L 97.8 F Pulse Rate 79 65 77 Respiratory Rate 16 20 16 Blood Pressure 151/79 H 134/70 Pulse Oximetry 96 97 95 03/23/18 13:19 03/23/18 16:00 03/23/18 16:58 Temperature 98 F Pulse Rate 80 88 95 H Respiratory Rate 20 14 20 Blood Pressure 124/63 Pulse Oximetry 97 Intake & Output 03/22/18 03/23/18 03/23/18 18:59 06:59 18:59 Intake Total 700 / 700 250 / 250 100 / 100 Output Total 600 / 600 375 / 375 Balance 100 / 100 -125 / -125 100 / 100 Weight 66.4 kg Intake: IV 100 / 100 100 / 100 100 / 100 Rocephin Inj 1,000 MG In NS Inj 100 / 100 100 / 100 100 / 100 100 ML @ 200 mls/hr IV.SIG Q12H [facility] Rx#:[id number] Oral 600 / 600 150 / 150 Output: Urine 600 / 600 375 / 375 Other: Date of Last Bowel Movement 03/22/18 03/22/18 # Bowel Movements 1 Narrative: GENERAL: Well-developed patient, in no apparent distress. CARDIOVASCULAR: Regular rate and rhythm without murmurs, gallops, or rubs. RESPIRATORY: Decreased breath sounds bilateral, Wheezing present, crackles. GASTROINTESTINAL: Abdomen soft, non-tender, nondistended. Normal active bowel sounds MUSCULOSKELETAL: Extremities without clubbing, cyanosis, or edema. NEURO: Alert & Oriented x4 to person, place, time, situation. Moves all ext x4 - Urinary Catheter Management Straight Cath placed during this visit: yes, but has since been removed by the nurse Reason for continuing: Not indwelling catheter Insertion date: 03/20/18 Insertion time: 13:15 Removal date: 03/20/18 Removal time: 01:30 Results - Labs CBC & Chem 7: 03/23/18 06:44 03/21/18 07:29 Laboratory Results - last 24 hr 03/23/18 06:44 WBC 8.6 RBC 3.39 L Hgb 11.3 L Hct 33.5 L MCV 98.8 MCH 33.3 MCHC 33.7 RDW 13.4 Plt Count 165 MPV 7.6 Neut % (Auto) 70.8 H Lymph % (Auto) 21.5 [place] % (Auto) 7.5 Eos % (Auto) 0.1 Baso % (Auto) 0.1 Neut # (Auto) 6.1 Lymph # (Auto) 1.8 [place] # (Auto) 0.6 Eos # (Auto) 0.0 Baso # (Auto) 0.0 WBC Differential . Differential Comment Auto diff final Microbiology 03/19/18 20:29 Blood - Peripheral Aerobic Blood Culture - Preliminary No growth in 4 days 03/19/18 20:29 Blood - Peripheral Anaerobic Blood Culture - Preliminary No growth in 4 days 03/19/18 20:19 Blood - Peripheral Aerobic Blood Culture - Preliminary No growth in 4 days 03/19/18 20:19 Blood - Peripheral Anaerobic Blood Culture - Preliminary No growth in 4 days - Procedures None Assessment and Plan - Plan RESPIRATORY FAILURE PNA COPD EXACERBATION IMPROVING PLAN O2 ANTIBX BRONCHODILATORS INCREASE ACTIVITY PO MEDS
[2018-03-23] MEDS: Azithromycin 250 MG Tablet PO SCH (21:06)
[2018-03-23] MEDS: Enoxaparin Inj 40 MG/0.4 ML Syringe SQ SCH (21:07)
[2018-03-24] MEDS: Chlorhexidine Gluconate 2% 1 Pack (2 Cloths) TOPICAL SCH (04:27)
[2018-03-24] MEDS: Lisinopril 10 MG Tablet PO SCH (09:03)
[2018-03-24] MEDS: ALPRAZolam 0.25 MG Tablet PO SCH ×2 (09:03→21:46)
[2018-03-24] MEDS: predniSONE 20 MG Tablet PO SCH (09:03)
[2018-03-24] MEDS: Senna/Docusate Sodium 8.6/50 MG Tablet PO SCH ×2 (09:04→21:46)
[2018-03-24] MEDS: Nystatin Liq 500,000 UNIT/5 ML UDC SWISH-SWAL SCH ×4 (09:04→21:46)
[2018-03-24] MEDS: Budesonide-Formoterol 160/4.5 MCG 6 GM Inhaler INH SCH (09:05)
[2018-03-24] MEDS: Simethicone 125 MG Chew Tablet PO SCH (09:05)
--- NOTE | 2018-03-24 11:47 | P.PN ---
Subjective Interval history: This is a pleasant 72 y/o Male with COPD, on 2 L/min NC of Oxygen at home, hypertension, dyslipidemic, BPH, GERD, Anxiety, admitted due to COPD exacerbation. 03/23: Stable in his bedroom, continue with Expiratory wheezing, walking with some Dyspnea. 03/24: Seen in his bedroom, no nausea, vomit or diarrhea, no difficulty to walk , continue with Severe decreased Breath sounds, but no wheezing or crackles at this time. Physical Exam Vital signs: Vital Signs 03/23/18 12:00 03/23/18 13:19 03/23/18 16:00 Temperature 97.8 F 98 F Pulse Rate 77 80 88 Respiratory Rate 16 20 14 Blood Pressure 134/70 124/63 Pulse Oximetry 95 97 03/23/18 16:58 03/23/18 19:47 03/23/18 20:00 Temperature 97.8 F Pulse Rate 95 H 92 H 96 H Respiratory Rate 20 16 20 Blood Pressure 150/72 H Pulse Oximetry 96 96 03/24/18 00:00 03/24/18 00:25 03/24/18 04:00 Temperature 98.4 F 97.7 F Pulse Rate 82 90 67 Respiratory Rate 20 16 18 Blood Pressure 144/72 H 149/94 H Pulse Oximetry 97 98 03/24/18 08:00 Temperature 97.3 F L Pulse Rate 90 Respiratory Rate 18 Blood Pressure 190/98 H Pulse Oximetry 94 L Intake & Output 03/23/18 03/24/18 03/24/18 18:59 06:59 18:59 Intake Total 100 / 100 820 / 820 100 / 100 Output Total 950 / 950 Balance 100 / 100 -130 / -130 100 / 100 Weight 66.3 kg Intake: IV 100 / 100 100 / 100 100 / 100 Rocephin Inj 1,000 MG In NS Inj 100 / 100 100 / 100 100 / 100 100 ML @ 200 mls/hr IV.SIG Q12H [facility] Rx#:[id number] Oral 720 / 720 Output: Urine 950 / 950 Other: Date of Last Bowel Movement 03/22/18 Narrative: GENERAL: Well-developed patient, in no apparent distress. CARDIOVASCULAR: Regular rate and rhythm without murmurs, gallops, or rubs. RESPIRATORY: Decreased breath sounds bilateral, No wheezing or crackles. GASTROINTESTINAL: Abdomen soft, non-tender, nondistended. Normal active bowel sounds MUSCULOSKELETAL: Extremities without clubbing, cyanosis, or edema. NEURO: Alert & Oriented x4 to person, place, time, situation. Moves all ext x4 - Urinary Catheter Management Straight Cath placed during this visit: yes, but has since been removed by the nurse Reason for continuing: Not indwelling catheter Insertion date: 03/20/18 Insertion time: 13:15 Removal date: 03/20/18 Removal time: 01:30 Results - Labs CBC & Chem 7: 03/23/18 06:44 03/21/18 07:29 Microbiology 03/19/18 20:29 Blood - Peripheral Aerobic Blood Culture - Final No growth in 5 days 03/19/18 20:29 Blood - Peripheral Anaerobic Blood Culture - Final No growth in 5 days 03/19/18 20:19 Blood - Peripheral Aerobic Blood Culture - Final No growth in 5 days 03/19/18 20:19 Blood - Peripheral Anaerobic Blood Culture - Final No growth in 5 days - Imaging Chest X-Ray 03/21/18 18:23 CONCLUSION: No acute cardiopulmonary disease demonstrated. Lungs are hyperexpanded but appear clear. - Procedures None Assessment and Plan - Plan 1. Acute hypoxic hypercapnic restaurant failure secondary to COPD exacerbation - resolved 2. Severe sepsis secondary to right lower lobe community-acquired pneumonia present on admission - resolved The patient was initially admitted to the intensive care unit. Initially there was a concern that the patient may need to be intubated, however he did well with BiPAP and subsequently improved. He was started on IV steroids and IV antibiotics. Breathing treatments were continued around the clock. Patient still has some wheezing on auscultation bilaterally. The patient was given supplemental oxygen, he uses 2 L of baseline home O2. Patient symptoms have improved and he has now been transferred to the hospitalist service. Blood cultures are negative Influenza negative Continue antibiotics Rocephin and Azithromycin, PO steroids Bronchodilators every four hours, Mucolytics and Incentive spirometry. clinical transformation specialist following. 3. Hypertension/dyslipidemia Uncontrolled in am will follow during the day. clonidine as needed for Hypertension. Continue lisinopril, continue statin. 4. Gastroesophageal reflux disease Continue PPI 5. BPH Continue Flomax. DVT prophylaxis with Lovenox Code Status: Full Code. Discussed Condition With: Patient and Nurse Miss Hua. Discharge Planning: Once cleared by clinical transformation specialist.
[2018-03-24] MEDS: guaiFENesin 600 MG ER Tablet PO SCH ×2 (12:12→21:46)
--- NOTE | 2018-03-24 17:55 | P.PN ---
Subjective Interval history: ALERT LESS SOB Physical Exam Vital signs: Vital Signs 03/23/18 19:47 03/23/18 20:00 03/24/18 00:00 Temperature 97.8 F 98.4 F Pulse Rate 92 H 96 H 82 Respiratory Rate 16 20 20 Blood Pressure 150/72 H 144/72 H Pulse Oximetry 96 96 97 03/24/18 00:25 03/24/18 04:00 03/24/18 08:00 Temperature 97.7 F 97.3 F L Pulse Rate 90 67 90 Respiratory Rate 16 18 18 Blood Pressure 149/94 H 190/98 H Pulse Oximetry 98 94 L 03/24/18 12:00 03/24/18 15:54 03/24/18 16:00 Temperature 97.9 F 97.9 F Pulse Rate 97 H 97 H 86 Respiratory Rate 18 18 18 Blood Pressure 176/87 H 135/62 Pulse Oximetry 94 L 94 L 94 L Intake & Output 03/23/18 03/24/18 03/24/18 18:59 06:59 18:59 Intake Total 100 / 100 820 / 820 100 / 100 Output Total 950 / 950 Balance 100 / 100 -130 / -130 100 / 100 Weight 66.3 kg Intake: IV 100 / 100 100 / 100 100 / 100 Rocephin Inj 1,000 MG In NS Inj 100 / 100 100 / 100 100 / 100 100 ML @ 200 mls/hr IV.SIG Q12H [facility] Rx#:[id number] Oral 720 / 720 Output: Urine 950 / 950 Other: Date of Last Bowel Movement 03/22/18 Narrative: GENERAL: Well-developed patient, in no apparent distress. CARDIOVASCULAR: Regular rate and rhythm without murmurs, gallops, or rubs. RESPIRATORY: Decreased breath sounds bilateral, No wheezing or crackles. GASTROINTESTINAL: Abdomen soft, non-tender, nondistended. Normal active bowel sounds MUSCULOSKELETAL: Extremities without clubbing, cyanosis, or edema. NEURO: Alert & Oriented x4 to person, place, time, situation. Moves all ext x4 - Urinary Catheter Management Straight Cath placed during this visit: yes, but has since been removed by the nurse Reason for continuing: Not indwelling catheter Insertion date: 03/20/18 Insertion time: 13:15 Removal date: 03/20/18 Removal time: 01:30 Results - Labs CBC & Chem 7: 03/23/18 06:44 03/21/18 07:29 Microbiology 03/19/18 20:29 Blood - Peripheral Aerobic Blood Culture - Final No growth in 5 days 03/19/18 20:29 Blood - Peripheral Anaerobic Blood Culture - Final No growth in 5 days 03/19/18 20:19 Blood - Peripheral Aerobic Blood Culture - Final No growth in 5 days 03/19/18 20:19 Blood - Peripheral Anaerobic Blood Culture - Final No growth in 5 days - Procedures None Assessment and Plan - Plan RESPIRATORY FAILURE PNA COPD EXACERBATION IMPROVING PLAN O2 ANTIBX BRONCHODILATORS INCREASE ACTIVITY PO MEDS
[2018-03-24] MEDS: Azithromycin 250 MG Tablet PO SCH (21:46)
[2018-03-24] MEDS: Enoxaparin Inj 40 MG/0.4 ML Syringe SQ SCH (21:47)
[2018-03-25] MEDS: Senna/Docusate Sodium 8.6/50 MG Tablet PO SCH ×2 (08:58→20:46)
[2018-03-25] MEDS: ALPRAZolam 0.25 MG Tablet PO SCH ×2 (08:58→20:46)
[2018-03-25] MEDS: Lisinopril 10 MG Tablet PO SCH (08:58)
[2018-03-25] MEDS: guaiFENesin 600 MG ER Tablet PO SCH ×2 (08:58→20:46)
[2018-03-25] MEDS: Simethicone 125 MG Chew Tablet PO SCH (08:58)
[2018-03-25] MEDS: Nystatin Liq 500,000 UNIT/5 ML UDC SWISH-SWAL SCH ×4 (08:58→20:47)
[2018-03-25] MEDS: predniSONE 20 MG Tablet PO SCH (08:58)
--- NOTE | 2018-03-25 09:28 | P.PN ---
Subjective Interval history: This is a pleasant 72 y/o Male with COPD, on 2 L/min NC of Oxygen at home, hypertension, dyslipidemic, BPH, GERD, Anxiety, admitted due to COPD exacerbation. 03/23: Stable in his bedroom, continue with Expiratory wheezing, walking with some Dyspnea. 03/24: no difficulty to walk, continue with Severe decreased Breath sounds, but no wheezing or crackles at this time. 03/25: Seen in his bedroom, not yet cleared by biologics specialist for discharge the patient states he was told by biologics specialist to discharge in am tomorrow. Physical Exam Vital signs: Vital Signs 03/24/18 12:00 03/24/18 15:54 03/24/18 16:00 Temperature 97.9 F 97.9 F Pulse Rate 90 97 H 92 H Respiratory Rate 18 18 18 Blood Pressure 176/87 H 135/62 Pulse Oximetry 94 L 94 L 94 L 03/24/18 20:00 03/24/18 20:11 03/24/18 23:40 Temperature 98.2 F Pulse Rate 79 87 82 Respiratory Rate 20 16 16 Blood Pressure 128/62 Pulse Oximetry 95 97 03/25/18 00:00 03/25/18 03:39 03/25/18 04:00 Temperature 98.1 F 95.5 F L Pulse Rate 79 82 81 Respiratory Rate 20 16 18 Blood Pressure 121/66 129/71 Pulse Oximetry 98 97 03/25/18 08:00 03/25/18 08:22 Temperature 97.7 F Pulse Rate 75 81 Respiratory Rate 17 16 Blood Pressure 147/72 H Pulse Oximetry 95 97 Intake & Output 03/24/18 03/25/18 03/25/18 18:59 06:59 18:59 Intake Total 820 / 820 900 / 900 Output Total 800 / 800 Balance 900 / 900 Weight 65.5 kg Intake: IV 100 / 100 100 / 100 Rocephin Inj 1,000 MG In NS Inj 100 / 100 100 / 100 100 ML @ 200 mls/hr IV.SIG Q12H [facility] Rx#:[id number] Oral 720 / 720 800 / 800 Output: Urine 800 / 800 Other: # Voids 3 Date of Last Bowel Movement 03/24/18 # Bowel Movements 1 Narrative: GENERAL: Well-developed patient, in no apparent distress. CARDIOVASCULAR: Regular rate and rhythm without murmurs, gallops, or rubs. RESPIRATORY: Decreased breath sounds bilateral, No wheezing or crackles. GASTROINTESTINAL: Abdomen soft, non-tender, nondistended. Normal active bowel sounds MUSCULOSKELETAL: Extremities without clubbing, cyanosis, or edema. NEURO: Alert & Oriented x4 to person, place, time, situation. Moves all ext x4 - Urinary Catheter Management Straight Cath placed during this visit: yes, but has since been removed by the nurse Reason for continuing: Not indwelling catheter Insertion date: 03/20/18 Insertion time: 13:15 Removal date: 03/20/18 Removal time: 01:30 Results - Labs CBC & Chem 7: 03/23/18 06:44 03/21/18 07:29 Microbiology 03/19/18 20:29 Blood - Peripheral Aerobic Blood Culture - Final No growth in 5 days 03/19/18 20:29 Blood - Peripheral Anaerobic Blood Culture - Final No growth in 5 days 03/19/18 20:19 Blood - Peripheral Aerobic Blood Culture - Final No growth in 5 days 03/19/18 20:19 Blood - Peripheral Anaerobic Blood Culture - Final No growth in 5 days - Imaging Chest X-Ray 03/21/18 18:23 CONCLUSION: No acute cardiopulmonary disease demonstrated. Lungs are hyperexpanded but appear clear. - Procedures None Assessment and Plan - Plan 1. Acute hypoxic hypercapnic restaurant failure secondary to COPD exacerbation - resolved 2. Severe sepsis secondary to right lower lobe community-acquired pneumonia present on admission - resolved The patient was initially admitted to the intensive care unit. Initially there was a concern that the patient may need to be intubated, however he did well with BiPAP and subsequently improved. He was started on IV steroids and IV antibiotics. Breathing treatments were continued around the clock. Patient still has some wheezing on auscultation bilaterally. The patient was given supplemental oxygen, he uses 2 L of baseline home O2. Patient symptoms have improved and he has now been transferred to the hospitalist service. Blood cultures are negative Influenza negative Continue antibiotics Rocephin and Azithromycin, PO steroids Bronchodilators every four hours, Mucolytics and Incentive spirometry. Not yet cleared by biologics specialist. 3. Hypertension/dyslipidemia Controlled. clonidine as needed for Hypertension. Continue lisinopril, continue statin. 4. Gastroesophageal reflux disease Continue PPI 5. BPH Continue Flomax. DVT prophylaxis with Lovenox Code Status: Full code. Discussed Condition With: patient and Nurse Miss Simpson Discharge Planning: Once cleared by biologics specialist.
--- NOTE | 2018-03-25 15:41 | P.PN ---
Subjective Interval history: alert sob improving Physical Exam Vital signs: Vital Signs 03/24/18 15:54 03/24/18 16:00 03/24/18 20:00 Temperature 97.9 F 98.2 F Pulse Rate 97 H 92 H 79 Respiratory Rate 18 18 20 Blood Pressure 135/62 128/62 Pulse Oximetry 94 L 94 L 95 03/24/18 20:11 03/24/18 23:40 03/25/18 00:00 Temperature 98.1 F Pulse Rate 87 82 79 Respiratory Rate 16 16 20 Blood Pressure 121/66 Pulse Oximetry 97 98 03/25/18 03:39 03/25/18 04:00 03/25/18 08:00 Temperature 95.5 F L 97.7 F Pulse Rate 82 81 68 Respiratory Rate 16 18 17 Blood Pressure 129/71 147/72 H Pulse Oximetry 97 95 03/25/18 08:22 03/25/18 12:00 03/25/18 12:27 Temperature 98 F Pulse Rate 81 87 81 Respiratory Rate 16 17 16 Blood Pressure 138/60 Pulse Oximetry 97 95 Intake & Output 03/24/18 03/25/18 03/25/18 18:59 06:59 18:59 Intake Total 820 / 820 900 / 900 100 / 100 Output Total 800 / 800 Balance 20 20 900 / 900 100 / 100 Weight 65.5 kg Intake: IV 100 / 100 100 / 100 100 / 100 Rocephin Inj 1,000 MG In NS Inj 100 / 100 100 / 100 100 / 100 100 ML @ 200 mls/hr IV.SIG Q12H [facility] Rx#:[id number] Oral 720 / 720 800 / 800 Output: Urine 800 / 800 Other: # Voids 3 Date of Last Bowel Movement 03/24/18 # Bowel Movements 1 Narrative: GENERAL: Well-developed patient, in no apparent distress. CARDIOVASCULAR: Regular rate and rhythm without murmurs, gallops, or rubs. RESPIRATORY: Decreased breath sounds bilateral, No wheezing or crackles. GASTROINTESTINAL: Abdomen soft, non-tender, nondistended. Normal active bowel sounds MUSCULOSKELETAL: Extremities without clubbing, cyanosis, or edema. NEURO: Alert & Oriented x4 to person, place, time, situation. Moves all ext x4 - Urinary Catheter Management Straight Cath placed during this visit: yes, but has since been removed by the nurse Reason for continuing: Not indwelling catheter Insertion date: 03/20/18 Insertion time: 13:15 Removal date: 03/20/18 Removal time: 01:30 Results - Labs CBC & Chem 7: 03/23/18 06:44 03/21/18 07:29 Microbiology 03/19/18 20:29 Blood - Peripheral Aerobic Blood Culture - Final No growth in 5 days 03/19/18 20:29 Blood - Peripheral Anaerobic Blood Culture - Final No growth in 5 days 03/19/18 20:19 Blood - Peripheral Aerobic Blood Culture - Final No growth in 5 days 03/19/18 20:19 Blood - Peripheral Anaerobic Blood Culture - Final No growth in 5 days - Procedures None Assessment and Plan - Plan RESPIRATORY FAILURE PNA COPD EXACERBATION IMPROVING PLAN O2 ANTIBX BRONCHODILATORS INCREASE ACTIVITY home am if stable
[2018-03-25] MEDS: Azithromycin 250 MG Tablet PO SCH (20:46)
[2018-03-25] MEDS: Enoxaparin Inj 40 MG/0.4 ML Syringe SQ SCH (21:00)
[2018-03-26 08:44] VITALS: RESP 20
[2018-03-26 08:47] VITALS: BP 160/88; TEMP 98.1; O2SAT 98
[2018-03-26] MEDS: Simethicone 125 MG Chew Tablet PO SCH (09:07)
[2018-03-26] MEDS: Senna/Docusate Sodium 8.6/50 MG Tablet PO SCH (09:08)
[2018-03-26] MEDS: predniSONE 20 MG Tablet PO SCH (09:08)
[2018-03-26] MEDS: guaiFENesin 600 MG ER Tablet PO SCH (09:08)
[2018-03-26] MEDS: ALPRAZolam 0.25 MG Tablet PO SCH (09:08)
[2018-03-26] MEDS: Lisinopril 10 MG Tablet PO SCH (09:08)
[2018-03-26] MEDS: Nystatin Liq 500,000 UNIT/5 ML UDC SWISH-SWAL SCH ×2 (09:08→12:51)
[2018-03-26 12:17] VITALS: PULSE 85
--- NOTE | 2018-03-26 12:41 | P.DS ---
Date of admission: 03/19/18 21:19 Primary care physician: UNKNOWN Attending physician on discharge: Forest Melo Anticipated date of discharge: 03/26/18 Brief History from admission: 72-year-old male with past medical history of COPD on 2 L home O2, hypertension, hyperlipidemia, BPH, GERD, anxiety who presented to [facility] emergency department with shortness of breath. He states he is "always short of breath" and "always has a lot of sputum production". His family reports he has been complaining of chills for 4-5 days. He has had increased shortness of breath today since returning home from pulmonary rehab. EVAC was summoned and he was given a breathing treatment in route. Upon arrival to the ED his blood temperature was 101.8. He was also tachycardic in the 130s with labored breathing. He was placed on BiPAP and was given duonebs continuous x3, Rocephin, azithromycin, NS 500 mL IV, and ativan 1 mg IV. CXR showed infiltrate in lateral aspect right lower lung field. White blood cell count is 12.5. He denies any chest pain, hemoptysis, leg swelling, history of venous thromboembolic disease.. He states he feels improved since arrival and has been able to remove Bipap. However, breathing remains labored and he remains at risk for requiring ongoing BiPAP or intubation and thus endless belt finisher has been consulted for admission to ICU. DS: Diagnosis - Discharge Diagnosis (1) Acute exacerbation of chronic obstructive pulmonary disease (COPD) Status: Acute (2) Acute respiratory distress Status: Acute (3) COPD (chronic obstructive pulmonary disease) Status: Acute (4) HTN (hypertension) Status: Chronic DS: Summary Hospital Course: This is a pleasant 72 y/o Male with COPD, on 2 L/min NC of Oxygen at home, hypertension, dyslipidemic, BPH, GERD, Anxiety, admitted due to COPD exacerbation. 03/23: Stable in his bedroom, continue with Expiratory wheezing, walking with some Dyspnea. 03/24: no difficulty to walk, continue with Severe decreased Breath sounds, but no wheezing or crackles at this time. 03/25: Seen in his bedroom, not yet cleared by health services information specialist for discharge the patient states he was told by health services information specialist to discharge in am tomorrow. 03/26: Stable in his bedroom okay to discharge Home from health services information specialist, giving scripts for discharge will continue Home medicines. Assessment and Plan - Plan 1. Acute hypoxic hypercapnic restaurant failure secondary to COPD exacerbation - resolved 2. Severe sepsis secondary to right lower lobe community-acquired pneumonia present on admission - resolved The patient was initially admitted to the intensive care unit. Initially there was a concern that the patient may need to be intubated, however he did well with BiPAP and subsequently improved. He was started on IV steroids and IV antibiotics. Breathing treatments were continued around the clock. Patient still has some wheezing on auscultation bilaterally. The patient was given supplemental oxygen, he uses 2 L of baseline home O2. Patient symptoms have improved and he has now been transferred to the hospitalist service. Blood cultures are negative Influenza negative Continue antibiotics Rocephin and Azithromycin, PO steroids Bronchodilators every four hours, Mucolytics and Incentive spirometry. today cleared by health services information specialist for discharge will continue home Medicines and Prednisone 3. Hypertension/dyslipidemia Controlled. clonidine as needed for Hypertension. Continue lisinopril, continue statin. 4. Gastroesophageal reflux disease Continue PPI 5. BPH Continue Flomax. DVT prophylaxis with Lovenox Code Status: Full code. Discussed Condition With: Patient and Nurse Miss Simpson Discharge Planning: Discharge home and follow PCP and health services information specialist. - Time Spent with Patient Total time spent providing and/or coordinating discharge services: Greater than 30 minutes - Quality: VTE Deep Vein Thrombosis/Pulmonary Embolism Present on Admission: No Exam Vital signs: Vital Signs 03/25/18 16:00 03/25/18 16:03 03/25/18 20:00 Temperature 97.9 F 98.5 F Pulse Rate 72 81 89 Respiratory Rate 17 16 17 Blood Pressure 136/62 139/65 Pulse Oximetry 95 96 03/25/18 20:43 03/25/18 23:29 03/26/18 00:00 Temperature 97.4 F L Pulse Rate 85 75 78 Respiratory Rate 17 16 18 Blood Pressure 116/62 Pulse Oximetry 98 97 03/26/18 00:12 03/26/18 03:27 03/26/18 04:00 Temperature 97.6 F Pulse Rate 76 85 85 Respiratory Rate 16 19 Blood Pressure 133/68 Pulse Oximetry 96 03/26/18 04:18 03/26/18 08:00 03/26/18 08:43 Temperature 98.1 F Pulse Rate 76 71 70 Respiratory Rate 20 20 Blood Pressure 160/88 H Pulse Oximetry 98 03/26/18 12:16 Temperature Pulse Rate 85 Respiratory Rate 20 Blood Pressure Pulse Oximetry Intake & Output 03/25/18 03/26/18 03/26/18 18:59 06:59 18:59 Intake Total 100 / 100 600 / 600 100 / 100 Output Total 120 / 120 Balance 100 / 100 480 / 480 100 / 100 Weight 126.9 kg Intake: IV 100 / 100 100 / 100 100 / 100 Rocephin Inj 1,000 MG In NS Inj 100 / 100 100 / 100 100 / 100 100 ML @ 200 mls/hr IV.SIG Q12H [facility] Rx#:[id number] Oral 500 / 500 Output: Urine 120 / 120 Other: Date of Last Bowel Movement 03/24/18 Narrative: GENERAL: Well-developed patient, in no apparent distress. CARDIOVASCULAR: Regular rate and rhythm without murmurs, gallops, or rubs. RESPIRATORY: Decreased breath sounds bilateral, No wheezing or crackles. GASTROINTESTINAL: Abdomen soft, non-tender, nondistended. Normal active bowel sounds MUSCULOSKELETAL: Extremities without clubbing, cyanosis, or edema. NEURO: Alert & Oriented x4 to person, place, time, situation. Moves all ext x4 Results Procedures completed during hospitalization: None - Impressions ITS Impressions Chest X-Ray 03/21/18 18:23 CONCLUSION: No acute cardiopulmonary disease demonstrated. Lungs are hyperexpanded but appear clear. Discharge Plan - Discharge Disposition Patient Disposition: 01 Discharge Home - Discharge Condition Condition: Stable - Discharge Order Discharge Orders: Discharge Order (Routine); Ordered 03/26/18 Ordered By: Forest Melo - Discharge Details Anticipated Discharge Date: 03/26/18 Discharge Comment: follow with PCP in three days - Physicians Team Primary Care Provider: UNKNOWN, Attending Provider: Forest Melo Other Providers: [employer] ; Joan Malcolm DO
== END 2018-03-26 13:26 | disposition home or self-care (01) ==
LOC: NEPC 19:00 → NEDA 21:19 → HIMC 22:47 → N04 03-21 22:30
PROVIDERS: ADMIT Internal Medicine; ATTEND Internal Medicine